=== PATIENT | female | born 1930 | race Caucasian/White ===

== ENCOUNTER → 2016-11-06 | Outpatient (CLI) | payer MEDICARE, BC ==
--- NOTE | 2016-11-06 15:49 | CR ---
EXAMINATION: Right shoulder HISTORY: Pain COMPARISON: None TECHNIQUE: 3 views FINDINGS: There is no acute osseous abnormality, dislocation, or fracture. 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 The glenohumeral joint space is grossly preserved. IMPRESSION: Mild degenerative changes without acute findings.
== END ==
LOC: MW.CHORTHO 07:58
PROVIDERS: ATTEND Physician Assistant
DX: M25.511 Pain in right shoulder (principal)
CPT/HCPCS: 20610; 73030; G0463; J1040

== ENCOUNTER → 2017-01-11 | Outpatient (CLI) | payer MEDICARE, BC | LOC: MW.CHFP 08:00 | PROVIDERS: ATTEND Emergency Medicine | DX: N39.44 Nocturnal enuresis (principal); G31.84 Mild cognitive impairment of uncertain or unknown etiology; R42 Dizziness and giddiness | CPT/HCPCS: G0463 ==

== ENCOUNTER → 2017-02-05 | Outpatient (CLI) | payer MEDICARE, BC | LOC: MW.CHFP 08:00 | PROVIDERS: ATTEND Emergency Medicine | DX: I10 Essential (primary) hypertension (principal); R42 Dizziness and giddiness; R29.6 Repeated falls | CPT/HCPCS: G0463 ==

== ENCOUNTER 2018-06-05 11:40 | Emergency (ER) | payer MEDICARE, BC ==
[2018-06-05 11:57] VITALS: BP 180/79
[2018-06-05] MEDS ORDERED: Sodium Chloride 0.9% 2.5 ML Syringe FLUSH PRN (11:57)
[2018-06-05] MEDS ORDERED: Sodium Chloride 0.9% 10 ML Syringe FLUSH PRN (11:57)
--- NOTE | 2018-06-05 11:57 | EDM.PDOC ---
ED HPI GENERAL MEDICAL PROBLEM - General Stated Complaint: POSSIBLE STROKE Time Seen by Provider: 06/05/18 11:40 Source of Information: Reports: Patient, EMS, Family History Limitations: Reports: No Limitations - History of Present Illness INITIAL COMMENTS - FREE TEXT/NARRATIVE: HISTORY AND PHYSICAL: Stroke Code was called upon arrival by EMS, Dr Fox was involved with this case. History of present illness: Patient is an 87-year-old female who presents to the emergency room with EMS as a stroke code. Patient receives in-home care by 2 caregivers and family members that intermittently staying with her as well. Last night the patient did get up at 1:30 AM to use the bathroom and at that time was known well. The caregiver states that she was restless throughout the evening and mumbling in her sleep, which is unlike her. The caregiver came into the patient's room at approximately 7 AM and asked her if she needed to use the restroom which she replied "no". At this time the caregiver did not physically assess the patient. She let the patient sleep-in, as she had been restless throughout the evening. The nurse came in at 8:30 in the morning to provide pericare, as she is frequently incontinent of urine. The caregiver noted that she was generally weaker than normal. It wasn't until 10:00am that the caregiver realized that she had extreme weakness and proceeded to call her litharge supervisor. They did do routine assessment and had an elevated blood pressure of 200/105. EMS was called to the home. A stroke code was called prior to the patient's arrival. Upon arrival the patient is alert but is neglecting her left side. Blood sugar is 120. Patient has a past medical history high blood pressure, dementia, cognitive decline and hydrocephalus. Primary care provider DR GUTIERREZ Review of systems: As per history of present illness and below otherwise all systems reviewed and negative. Past medical history: As per history of present illness and as reviewed below otherwise noncontributory. Surgical history: As per history of present illness and as reviewed below otherwise noncontributory. Social history: No reported history of drug or alcohol abuse. Family history: As per history of present illness and as reviewed below otherwise noncontributory. Physical exam: General: Well-developed and well-nourished 87-year-old female. Alert and Orientated x 3. Neglecting left side of body. HEENT: Atraumatic, normocephalic, pupils equal and reactive bilaterally, negative for conjunctival pallor or scleral icterus, gazing to right side, mucous membranes moist, throat clear, neck supple, nontender, trachea midline. No drooling or trismus noted. No meningeal signs Lungs: Clear to auscultation, slightly diminished, breath sounds equal bilaterally, chest nontender. Heart: S1S2, regular rate and rhythm without overt murmur Abdomen: Soft, nondistended, nontender. Negative for masses or hepatosplenomegaly. Negative for costovertebral tenderness. Pelvis: Stable nontender. Genitourinary: Deferred. Rectal: Deferred. Skin: Intact, warm, dry. No lesions or rashes noted. Extremities: Patient is neglecting the left side of her body and no active range of motion., negative for cords or calf pain. Neurovascular unremarkable. Neuro: Awake, alert, oriented. Left sided neglect, states she has sensation with touch of the face (but not from shoulder downward of left side). Left sided facial droop, no movement of left upper or lower extremity. Notes: Upon arrival NIH: 16. Complete neglect of the left side, no movement. Patient to CT with nursing staff to monitor 1145: Dr Paz, [facility], was consulted on this case. Family currently has patient at a Code I, and want her to be transferred to [facility] for Neurology care. Upon patient return, she is now able to move the left leg, but unable to lift it up off the bed. Still facial droop noted to left side, but does close both eyes with threatened incoming object. Unable to move left upper extremity. [facility] was called for transfer. 1215: Dr Fragoso, consulting radiology report that there is no acute hemorrhage/ bleeding noted. Does have enlarged ventricles, out of proportion - the patient norm due to her history of hydrocephalus. 1230: Family is discussing her code-status an dif they now want her to be transferred. Dr Fox has been in with family to have a in length discussion about patient care/transfer. 1250: No change in patient status. Family waiting for a family member to arrive before deciding about transfer. Dr Gonzalez in at bedside talking with patient and family. Family would like patient at CODE III 1320: No change in patient status. VSS. Family has agreed to transfer this patient via [employer] flight. Diagnostics: CBC, CMP, UA, Bedside glucose, PT/INR, PTT, Head CT (Stat), NIH assessment Therapeutics: Saline Lock Impression: Acute Stroke (non-hemorrhagic) Plan: Transfer to [facility] Definitive disposition and diagnosis as appropriate pending reevaluation and review of above. Onset: Unknown/Unsure - Related Data Allergies Allergy/AdvReac Type Severity Reaction Status Date / Time codeine Allergy Itching Verified 06/05/18 11:56 nitrofurantoin Allergy Itching Verified 06/05/18 11:56 [From Macrobid] nitrofurantoin Allergy Itching Verified 06/05/18 11:56 macrocrystalline [From Macrobid] Penicillins Allergy Itching Verified 06/05/18 11:56 Thiazides Allergy unknown Verified 06/05/18 11:56 antibiotics Allergy Itching Uncoded 06/05/18 11:56 Home Meds: Home Meds Levothyroxine Sodium [Synthroid] 25 mcg PO DAILY 01/30/15 [History] Lisinopril 20 mg PO DAILY 01/30/15 [History] Sertraline [Zoloft] 100 mg PO DAILY 01/30/15 [History] Calcium Carbonate [Calcium] 1 tab PO DAILY 07/09/15 [History] L.acidoph,Paracasei, B.lactis [Probiotic] 2 tab PO DAILY 07/09/15 [History] amLODIPine [Norvasc] 5 mg PO BEDTIME 07/09/15 [History] Acetaminophen/oxyCODONE [Percocet 325-5 MG] 1 - 2 tab PO Q6H PRN #20 tablet [Rx] Past Medical History Other HEENT History: melissa hearing aides, top denture, wears glasses Other Cardiovascular History: related to kidney stenosis (left) Other Gastrointestinal History: history of C. diff 3 years ago Other Genitourinary History: Renal stenosis (left) Other Hematologic History: hx thrombocytopenia - Past Surgical History Other Cardiovascular Surgeries/Procedures: right,. Tracheal mucoseal Other Respiratory Surgeries/Procedures: tracheostomy in 2010 (temporary) Other Musculoskeletal Surgeries/Procedures:: diskectomy ED ROS GENERAL - Review of Systems Review Of Systems: ROS reveals no pertinent complaints other than HPI. ED EXAM, GENERAL - Physical Exam Exam: See Below (See dictation) Course - Vital Signs Last Recorded V/S: Last Vital Signs Temp 97.1 F 06/05/18 11:40 Pulse 73 06/05/18 11:40 Resp 16 06/05/18 11:40 BP 180/79 H 06/05/18 11:40 Pulse Ox 95 06/05/18 11:57 - Orders/Labs/Meds Orders: Active Orders 24 hr Category Date Time Status Assess Neurological Status [RC] ASDIRECTED Care 06/05/18 11:57 Active Blood Glucose Check, Bedside [] STAT Care 06/05/18 11:57 Active Cardiac Monitoring [RC] . DIRECTED Care 06/05/18 11:57 Active EKG Documentation Completion [] STAT Care 06/05/18 11:57 Active Initiate Acute Stroke Protocol [] STAT Care 06/05/18 11:57 Active NIH Stroke Scale [] ASDIRECTED Care 06/05/18 11:57 Active Oxygen Therapy [] ASDIRECTED Care 06/05/18 11:57 Active Head wo Cont [CT] Stat Exams 06/05/18 11:57 Taken Sodium Chloride 0.9% [Saline Flush] Med 06/05/18 11:57 Active 10 ml FLUSH ASDIRECTED PRN Sodium Chloride 0.9% [Saline Flush] Med 06/05/18 11:57 Active 2.5 ml FLUSH ASDIRECTED PRN Peripheral IV Insertion Adult [OM.PC] Stat Oth 06/05/18 11:57 Ordered Peripheral IV Insertion Adult [OM.PC] Stat Oth 06/05/18 11:57 Ordered Resuscitation Status Stat Resus Stat 06/05/18 11:57 Ordered Medication Orders Sodium Chloride (Saline Flush) 10 ml FLUSH ASDIRECTED PRN PRN Reason: Keep Vein Open Sodium Chloride (Saline Flush) 2.5 ml FLUSH ASDIRECTED PRN PRN Reason: Keep Vein Open Labs: Laboratory Tests 06/05/18 06/05/18 06/05/18 Range/Units 12:00 12:00 12:00 WBC 6.16 (4.0-11.0) K/uL RBC 4.56 (4.30-5.90) M/uL Hgb 13.6 (12.0-16.0) g/dL Hct 40.2 (36.0-46.0) % MCV 88.2 (80.0-98.0) fL MCH 29.8 (27.0-32.0) pg MCHC 33.8 (31.0-37.0) g/dL RDW Std Deviation 43.1 (28.0-62.0) fl RDW Coeff of Megan 13 (11.0-15.0) % Plt Count 101 L (150-400) K/uL MPV 11.00 (7.40-12.00) fL Neut % (Auto) 79.2 (48.0-80.0) % Lymph % (Auto) 15.1 L (16.0-40.0) % [facility] % (Auto) 4.5 (0.0-15.0) % Eos % (Auto) 1.0 (0.0-7.0) % Baso % (Auto) 0.2 (0.0-1.5) % Neut # (Auto) 4.9 (1.4-5.7) K/uL Lymph # (Auto) 0.9 (0.6-2.4) K/uL [facility] # (Auto) 0.3 (0.0-0.8) K/uL Eos # (Auto) 0.1 (0.0-0.7) K/uL Baso # (Auto) 0.0 (0.0-0.1) K/uL Nucleated RBC % 0.0 /100WBC Nucleated RBCs # 0 K/uL INR 1.11 APTT 29.7 (18.6-31.3) SEC Sodium 141 (136-145) mmol/L Potassium 3.7 (3.5-5.1) mmol/L Chloride 105 (98-107) mmol/L Carbon Dioxide 27.0 (21.0-32.0) mmol/L BUN 20 H (7.0-18.0) mg/dL Creatinine 1.0 (0.6-1.0) mg/dL Est Cr Clr Drug Dosing TNP Estimated GFR (MDRD) 52.6 ml/min Glucose 141 H (74-106) mg/dL Calcium 9.6 (8.5-10.1) mg/dL Total Bilirubin 0.5 (0.2-1.0) mg/dL AST 20 (15-37) IU/L ALT 17 (14-63) IU/L Alkaline Phosphatase 50 (46-116) U/L Troponin I < 0.050 (0.000-0.056) ng/mL Total Protein 7.1 (6.4-8.2) g/dL Albumin 4.0 (3.4-5.0) g/dL Globulin 3.1 (2.0-3.5) g/dL Albumin/Globulin Ratio 1.3 (1.3-2.8) Meds: Medications Generic Name Dose Route Start Last Admin Trade Name Freq PRN Reason Stop Dose Admin Sodium Chloride 10 ml 06/05/18 11:57 Saline Flush FLUSH ASDIRECTED PRN Keep Vein Open Sodium Chloride 2.5 ml 06/05/18 11:57 Saline Flush FLUSH ASDIRECTED PRN Keep Vein Open Departure - Departure Time of Disposition: 13:26 Disposition: DC/Tfer to Acute Hospital 02 Clinical Impression: Acute ischemic stroke - Discharge Information Referrals: PCP,None [Primary Care Provider] -
[2018-06-05 12:47] LABS: CHLORIDE,CL 105 mmol/L (98-107); SODIUM,NA 141 mmol/L (136-145)
--- NOTE | 2018-06-06 15:48 | CT ---
EXAM DATE: 06/05/18 PATIENT'S AGE: 87 Patient: JADIEL STROKECODE Facility: [facility], [place], [place] Site . Site : 09/13/1928 Study: CT Head -06/05/2018 11:51:11 AM Ordering Physician: Doctor Mendoza Final Report: INDICATION: Stroke code. TECHNIQUE: Multiple axial images were obtained through the brain without contrast. Sagittal and coronal re-formatted images were obtained. COMPARISON: None. FINDINGS: There is atrophy. The ventricles appear dilated out of proportion to the sulci. There is decreased attenuation in the periventricular white matter consistent with small vessel ischemic disease. There is no mass effect or midline shift. There is no intracranial hemorrhage. There is no fracture identified on bone windows. IMPRESSION: 1. The ventricles appear dilated out of proportion to the sulci. In the correct clinical scenario this could be secondary to a normal-pressure hydrocephalus. 2. Findings consistent with small vessel ischemic disease. 3. No acute intracranial hemorrhage. Report was discussed with Dr. Larsen on 06/04/2018 at that 1214 hours. Dictated by Conrad Lira MD @ 06/05/2018 12:16:45 PM Please note that all CT scans at this facility use dose modulation, iterative reconstruction, and/or weight-based dosing when appropriate to reduce radiation dose to as low as reasonably achievable. Dictated by: Conrad Lira MD @ 06/05/2018 12:16:53 (Electronic Signature) Report Signed by Proxy. G[facility] CENTERCarlo
== END 2018-06-05 13:32 ==
LOC: MW.ED 11:40
DX: I63.9 Cerebral infarction, unspecified (principal); R29.810 Facial weakness; F03.90 Unspecified dementia, unspecified severity, without behavioral disturbance, psychotic disturbance, mood disturbance, and anxiety; Z88.5 Allergy status to narcotic agent; Z88.0 Allergy status to penicillin; Z88.1 Allergy status to other antibiotic agents; Z88.8 Allergy status to other drugs, medicaments and biological substances; Z79.899 Other long term (current) drug therapy
CPT/HCPCS: 36415; 70450; 70450-26; 80053; 84484; 85025; 85610; 85730; 93005; 99284; 99285-25

== ENCOUNTER 2019-10-10 18:57 | Inpatient (IN) | payer MEDICARE, BC ==
[2019-10-10] MEDS ORDERED: Sodium Chloride 0.9% 2.5 ML Syringe FLUSH PRN (19:19)
[2019-10-10] MEDS ORDERED: Sodium Chloride 0.9% 10 ML Syringe FLUSH PRN (19:19)
[2019-10-10] MEDS ORDERED: Acetaminophen 650 MG Supp RECTAL ONE (19:20)
--- NOTE | 2019-10-10 19:31 | EDM.PDOC ---
ED HPI GENERAL MEDICAL PROBLEM - General Chief Complaint: General Stated Complaint: EMS Time Seen by Provider: 10/10/19 19:09 - History of Present Illness INITIAL COMMENTS - FREE TEXT/NARRATIVE: HISTORY AND PHYSICAL: History of present illness: The patient is an 89-year-old female who lives at home with her daughter and has a history of hypertension hypothyroidism a small pleural effusion with some mild CHF who had a UTI a month ago but his antibiotics were stopped because the culture did not yield significant results and who presents via EMS after the daughter noted that she was more confused and her O2 sats were low in the 80s this evening. 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 She was afebrile earlier at 99 per the daughter. She had no complaints of chest pain shortness of breath had no cough abdominal pain vomiting diarrhea or any systemic issues. The daughter noted that she seemed to be much more confused and checked her O2 sat and it was in the 80s and she called EMS. Here her temperature is 103.5. The patient denies any pain currently and is very slow to answer but is alert and interactive. The daughter says she has been eating and drinking normally. The daughter told nursing that she has not had a facial droop on the right with her prior stroke which left her with a left hemiparesis. Review of systems: As per history of present illness and below otherwise all systems reviewed and negative. Past medical history: As per history of present illness and as reviewed below otherwise noncontributory. Surgical history: As per history of present illness and as reviewed below otherwise noncontributory. Social history: No reported history of drug or alcohol abuse. Family history: As per history of present illness and as reviewed below otherwise noncontributory. Physical exam: General: Well-developed well-nourished elderly female who speaks softly and clearly but does not have a slurred voice. She has a visible slight right facial droop appreciated. Vital signs are noted by me HEENT: Atraumatic, normocephalic, pupils reactive, negative for conjunctival pallor or scleral icterus, mucous membranes moist, throat clear, neck supple, nontender, trachea midline. Lungs: Diminished breath sounds in the bases and some occasional coarse breath sounds but no work of breathing wheezing or stridor breath sounds equal bilaterally, chest nontender. Heart: S1S2, regular and rhythm and a systolic ejection murmur is appreciated at the left sternal border Abdomen: Soft, nondistended, nontender. Bowel sounds are hypoactive and there is some tympany on percussion but no tenderness in the abdomen is very globular. Negative for masses or hepatosplenomegaly. Negative for costovertebral tenderness. Pelvis: Stable nontender. Genitourinary: Deferred. Rectal: Deferred. Extremities: Atraumatic, negative for cords or calf pain. Neurovascular unremarkable. Neuro: Awake, alert, softly and quietly and she is oriented to person and place.. SHe has the right facial droop appreciated and there is some contracture seen of the left hand and she does not move her left arm or leg on my examination in the right side is a 3/5 in the upper extremity and a 3/5 in the lower extremity with very slow effort and sensory unremarkable throughout. Exam nonfocal. Diagnostics: EKG CBC CMP TSH UA urine culture blood cultures lactic acid influenza swab chest x-ray CT scan of the head Therapeutics: IV O2 monitor Tylenol rectally IV fluids Findings were discussed with the daughter at bedside and we will plan for admission. I will discuss this case with the hospitalist [id number]: Dr Draper hospitalist was contacted and agrees with care plan and accepts the patient for inpatient admission. Impression: Fever with confusion and hypoventilation, urosepsis, dehydration; history of prior CVA with left hemiparesis Definitive disposition and diagnosis as appropriate pending reevaluation and review of above. - Related Data Allergies Allergy/AdvReac Type Severity Reaction Status Date / Time codeine Allergy Itching Verified 10/10/19 19:02 nitrofurantoin Allergy Itching Verified 10/10/19 19:02 [From Macrobid] nitrofurantoin Allergy Itching Verified 10/10/19 19:02 macrocrystalline [From Macrobid] Penicillins Allergy Itching Verified 10/10/19 19:02 Sulfa (Sulfonamide Allergy Itching Verified 10/10/19 19:02 Antibiotics) Thiazides Allergy unknown Verified 10/10/19 19:02 Home Meds: Home Meds Baclofen 5 mg PO QID 10/10/19 [History] Escitalopram [Lexapro] 5 mg PO DAILY 10/10/19 [History] Gabapentin [Neurontin] 100 mg PO BEDTIME 10/10/19 [History] Levothyroxine 25 mcg PO DAILY 10/10/19 [History] Lisinopril [Zestril] 20 mg PO BEDTIME 10/10/19 [History] Metoprolol Succinate [Toprol XL] 25 mg PO BEDTIME 10/10/19 [History] Potassium Chloride 10 meq PO DAILY 10/10/19 [History] hydrALAZINE HCl [Hydralazine HCl] 25 mg PO BEDTIME 10/10/19 [History] Past Medical History Other HEENT History: melissa hearing aides, top denture, wears glasses Cardiovascular History: Reports: Hypertension Other Cardiovascular History: related to kidney stenosis (left) Respiratory History: Reports: None Other Gastrointestinal History: history of C. diff 3 years ago Other Genitourinary History: Renal artery stenosis (left) Neurological History: Reports: CVA, Other (See Below) Other Neuro History: Normal pressure hydrocephalus Endocrine/Metabolic History: Reports: Hypothyroidism Other Hematologic History: hx thrombocytopenia - Infectious Disease History Infectious Disease History: Reports: Chicken Pox Other Infectious Disease History: unable to obtain - Past Surgical History Other Cardiovascular Surgeries/Procedures: right,. Tracheal mucoseal Other Respiratory Surgeries/Procedures: tracheostomy in 2010 (temporary) Other Musculoskeletal Surgeries/Procedures:: diskectomy Social & Family History - Family History Family Medical History: Noncontributory - Tobacco Use Smoking Status *Q: Never Smoker - Caffeine Use Caffeine Use: Reports: None - Recreational Drug Use Recreational Drug Use: No - Living Situation & Occupation Living situation: Reports: Extended Care Facility ED ROS GENERAL - Review of Systems Review Of Systems: Comprehensive ROS is negative, except as noted in HPI. ED EXAM, GENERAL - Physical Exam Exam: See Below (See dictation) Course - Vital Signs Last Recorded V/S: Last Vital Signs Temp 39.7 C H 10/10/19 19:29 Pulse 83 10/10/19 20:10 Resp 18 10/10/19 20:10 BP 161/73 H 10/10/19 20:10 Pulse Ox 95 10/10/19 20:10 - Orders/Labs/Meds Orders: Active Orders 24 hr Category Date Time Status Blood Glucose Check, Bedside [RC] ONETIME Care 10/10/19 19:18 Active Cardiac Monitoring [RC] . DIRECTED Care 10/10/19 19:17 Active EKG Documentation Completion [RC] STAT Care 10/10/19 19:17 Active Oxygen Therapy, ED [RC] ASDIRECTED Care 10/10/19 19:17 Active Pulse Oximetry [RC] ASDIRECTED Care 10/10/19 19:17 Active CULTURE BLOOD [BC] Stat Lab 10/10/19 19:45 Received CULTURE BLOOD [BC] Stat Lab 10/10/19 20:09 Received CULTURE URINE [RM] Stat Lab 10/10/19 19:15 Received Sodium Chloride 0.9% [Normal Saline] 1,000 ml Med 10/10/19 19:30 Active IV ASDIRECTED Sodium Chloride 0.9% [Saline Flush] Med 10/10/19 19:19 Active 10 ml FLUSH ASDIRECTED PRN Sodium Chloride 0.9% [Saline Flush] Med 10/10/19 19:19 Active 2.5 ml FLUSH ASDIRECTED PRN Blood Culture x2 Reflex Set [OM.PC] Stat Oth 10/10/19 19:18 Ordered Saline Lock Insert [OM.PC] Stat Oth 10/10/19 19:17 Ordered Medication Orders Sodium Chloride (Normal Saline) 1,000 mls @ 125 mls/hr IV ASDIRECTED ROSY Last Admin: 10/10/19 19:35 Dose: 999 mls/hr Sodium Chloride (Saline Flush) 10 ml FLUSH ASDIRECTED PRN PRN Reason: Keep Vein Open Sodium Chloride (Saline Flush) 2.5 ml FLUSH ASDIRECTED PRN PRN Reason: Keep Vein Open Labs: Laboratory Tests 10/10/19 10/10/19 10/10/19 Range/Units 19:15 19:45 19:45 WBC 6.13 (4.0-11.0) K/uL RBC 3.68 L (4.30-5.90) M/uL Hgb 10.5 L (12.0-16.0) g/dL Hct 32.5 L (36.0-46.0) % MCV 88.3 (80.0-98.0) fL MCH 28.5 (27.0-32.0) pg MCHC 32.3 (31.0-37.0) g/dL RDW Std Deviation 46.6 (28.0-62.0) fl RDW Coeff of Megan 15 (11.0-15.0) % Plt Count 140 L (150-400) K/uL MPV 11.00 (7.40-12.00) fL Neut % (Auto) 93.6 H (48.0-80.0) % Lymph % (Auto) 2.4 L (16.0-40.0) % Morton % (Auto) 3.3 (0.0-15.0) % Eos % (Auto) 0.5 (0.0-7.0) % Baso % (Auto) 0.2 (0.0-1.5) % Neut # (Auto) 5.7 (1.4-5.7) K/uL Lymph # (Auto) 0.2 L (0.6-2.4) K/uL Morton # (Auto) 0.2 (0.0-0.8) K/uL Eos # (Auto) 0.0 (0.0-0.7) K/uL Baso # (Auto) 0.0 (0.0-0.1) K/uL Nucleated RBC % 0.0 /100WBC Nucleated RBCs # 0 K/uL Lactate 2.5 H* (0.20-2.00) mmol/L Sodium (136-145) mmol/L Potassium (3.5-5.1) mmol/L Chloride (98-107) mmol/L Carbon Dioxide (21.0-32.0) mmol/L BUN (7.0-18.0) mg/dL Creatinine (0.6-1.0) mg/dL Est Cr Clr Drug Dosing mL/min Estimated GFR (MDRD) ml/min Glucose (74-106) mg/dL Calcium (8.5-10.1) mg/dL Total Bilirubin (0.2-1.0) mg/dL AST (15-37) IU/L ALT (14-63) IU/L Alkaline Phosphatase (46-116) U/L Total Protein (6.4-8.2) g/dL Albumin (3.4-5.0) g/dL Globulin (2.6-4.0) g/dL Albumin/Globulin Ratio (0.9-1.6) TSH 3rd Generation (0.36-3.74) uIU/mL Urine Color YELLOW Urine Appearance CLOUDY Urine pH 6.0 (5.0-8.0) Ur Specific Josephine 1.020 (1.001-1.035) Urine Protein NEGATIVE (NEGATIVE) mg/dL Urine Glucose (UA) NEGATIVE (NEGATIVE) mg/dL Urine Ketones NEGATIVE (NEGATIVE) mg/dL Urine Occult Blood TRACE-LYSED H (NEGATIVE) Urine Nitrite POSITIVE H (NEGATIVE) Urine Bilirubin NEGATIVE (NEGATIVE) Urine Urobilinogen 0.2 (<2.0) EU/dL Ur Leukocyte Esterase TRACE H (NEGATIVE) Urine RBC 10-15 (0-2/HPF) Urine WBC 4-8 (0-5/HPF) Ur Epithelial Cells RARE (NONE-FEW) Urine Bacteria 3+ H (NEGATIVE) 10/10/19 Range/Units 19:45 WBC (4.0-11.0) K/uL RBC (4.30-5.90) M/uL Hgb (12.0-16.0) g/dL Hct (36.0-46.0) % MCV (80.0-98.0) fL MCH (27.0-32.0) pg MCHC (31.0-37.0) g/dL RDW Std Deviation (28.0-62.0) fl RDW Coeff of Megan (11.0-15.0) % Plt Count (150-400) K/uL MPV (7.40-12.00) fL Neut % (Auto) (48.0-80.0) % Lymph % (Auto) (16.0-40.0) % Morton % (Auto) (0.0-15.0) % Eos % (Auto) (0.0-7.0) % Baso % (Auto) (0.0-1.5) % Neut # (Auto) (1.4-5.7) K/uL Lymph # (Auto) (0.6-2.4) K/uL Morton # (Auto) (0.0-0.8) K/uL Eos # (Auto) (0.0-0.7) K/uL Baso # (Auto) (0.0-0.1) K/uL Nucleated RBC % /100WBC Nucleated RBCs # K/uL Lactate (0.20-2.00) mmol/L Sodium 140 (136-145) mmol/L Potassium 3.1 L (3.5-5.1) mmol/L Chloride 104 (98-107) mmol/L Carbon Dioxide 20.1 L (21.0-32.0) mmol/L BUN 28 H (7.0-18.0) mg/dL Creatinine 1.0 (0.6-1.0) mg/dL Est Cr Clr Drug Dosing 36.40 mL/min Estimated GFR (MDRD) 52.3 ml/min Glucose 110 H (74-106) mg/dL Calcium 8.6 (8.5-10.1) mg/dL Total Bilirubin 0.4 (0.2-1.0) mg/dL AST 29 (15-37) IU/L ALT 20 (14-63) IU/L Alkaline Phosphatase 92 (46-116) U/L Total Protein 6.0 L (6.4-8.2) g/dL Albumin 2.7 L (3.4-5.0) g/dL Globulin 3.3 (2.6-4.0) g/dL Albumin/Globulin Ratio 0.8 L (0.9-1.6) TSH 3rd Generation 2.54 (0.36-3.74) uIU/mL Urine Color Urine Appearance Urine pH (5.0-8.0) Ur Specific Josephine (1.001-1.035) Urine Protein (NEGATIVE) mg/dL Urine Glucose (UA) (NEGATIVE) mg/dL Urine Ketones (NEGATIVE) mg/dL Urine Occult Blood (NEGATIVE) Urine Nitrite (NEGATIVE) Urine Bilirubin (NEGATIVE) Urine Urobilinogen (<2.0) EU/dL Ur Leukocyte Esterase (NEGATIVE) Urine RBC (0-2/HPF) Urine WBC (0-5/HPF) Ur Epithelial Cells (NONE-FEW) Urine Bacteria (NEGATIVE) Meds: Medications Generic Name Dose Route Start Last Admin Trade Name Freq PRN Reason Stop Dose Admin Sodium Chloride 1,000 mls @ 125 mls/hr 10/10/19 19:30 10/10/19 19:35 Normal Saline IV 999 mls/hr ASDIRECTED ROSY Administration Sodium Chloride 10 ml 10/10/19 19:19 Saline Flush FLUSH ASDIRECTED PRN Keep Vein Open Sodium Chloride 2.5 ml 10/10/19 19:19 Saline Flush FLUSH ASDIRECTED PRN Keep Vein Open Discontinued Medications Generic Name Dose Route Start Last Admin Trade Name Raulq PRN Reason Stop Dose Admin Acetaminophen 650 mg 10/10/19 19:20 10/10/19 19:29 Tylenol RECTAL 10/10/19 19:21 650 mg NOW ONE Administration Ceftriaxone Sodium/Dextrose 1 50 mls @ 100 mls/hr 10/10/19 19:51 10/10/19 20: 16 gm/ Premix IV 10/10/19 20:20 100 mls/hr ONETIME ONE Administration Labetalol HCl Confirm 10/10/19 20:23 Normodyne Administered 10/10/19 20:24 Dose 100 mg .ROUTE .STK-MED ONE Departure - Departure Time of Disposition: 20:41 Disposition: Admitted As Inpatient 67 Condition: Fair Clinical Impression: UTI, Urinary tract infectious disease, Confusion Fever Qualifiers: Fever type: due to other condition Qualified Code(s): R50.81 - Fever presenting with conditions classified elsewhere - Discharge Information Referrals: Aman Adrian MD [Primary Care Provider] - Forms: ED Department Discharge Sepsis Event Note - Evaluation Sepsis Screening Result: No Definite Risk - Focused Exam Vital Signs: Vital Signs Temp Temp Pulse Resp BP Pulse Ox 10/10/19 20:10 83 18 161/73 H 95 10/10/19 19:29 39.7 C H 10/10/19 19:12 39.7 C H 10/10/19 19:02 100 17 161/71 H 90 L Date Exam was Performed: 10/10/19 Time Exam was Performed: 20:40 - My Orders Last 24 Hours: My Active Orders 10/10/19 19:15 CULTURE URINE [RM] Stat 10/10/19 19:17 Cardiac Monitoring [RC] . DIRECTED EKG Documentation Completion [RC] STAT Oxygen Therapy, ED [RC] ASDIRECTED Pulse Oximetry [RC] ASDIRECTED Saline Lock Insert [OM.PC] Stat 10/10/19 19:18 Blood Glucose Check, Bedside [RC] ONETIME Blood Culture x2 Reflex Set [OM.PC] Stat 10/10/19 19:19 Sodium Chloride 0.9% [Saline Flush] 10 ml FLUSH ASDIRECTED PRN Sodium Chloride 0.9% [Saline Flush] 2.5 ml FLUSH ASDIRECTED PRN 10/10/19 19:30 Sodium Chloride 0.9% [Normal Saline] 1,000 ml IV ASDIRECTED 10/10/19 19:45 CULTURE BLOOD [BC] Stat 10/10/19 20:09 CULTURE BLOOD [BC] Stat - Assessment/Plan Last 24 Hours: My Active Orders 10/10/19 19:15 CULTURE URINE [RM] Stat 10/10/19 19:17 Cardiac Monitoring [RC] . DIRECTED EKG Documentation Completion [RC] STAT Oxygen Therapy, ED [RC] ASDIRECTED Pulse Oximetry [RC] ASDIRECTED Saline Lock Insert [OM.PC] Stat 10/10/19 19:18 Blood Glucose Check, Bedside [RC] ONETIME Blood Culture x2 Reflex Set [OM.PC] Stat 10/10/19 19:19 Sodium Chloride 0.9% [Saline Flush] 10 ml FLUSH ASDIRECTED PRN Sodium Chloride 0.9% [Saline Flush] 2.5 ml FLUSH ASDIRECTED PRN 10/10/19 19:30 Sodium Chloride 0.9% [Normal Saline] 1,000 ml IV ASDIRECTED 10/10/19 19:45 CULTURE BLOOD [BC] Stat 10/10/19 20:09 CULTURE BLOOD [BC] Stat
[2019-10-10] MEDS: Sodium Chloride 0.9% 1,000 ML IV SCH ×2 (19:35→23:04)
[2019-10-10] MEDS ORDERED: cefTRIAXone 1 GM in Premix Bag 1 BAG IV ONE (19:51)
[2019-10-10] MEDS ORDERED: Labetalol 100 MG/20 ML MDV ONE (20:23)
--- NOTE | 2019-10-10 20:23 | CR ---
Chest: AP view of the chest was obtained. Comparison: Prior chest x-ray of 06/14/19. Moderately large right-sided pleural effusion is noted. Right basilar atelectasis is seen. Findings appear fairly stable from previous exam. Heart is mildly enlarged. Left lung and right upper lung are clear. Bony structures are osteopenic. Impression: 1. Right-sided pleural effusion and right basilar atelectasis. 2. Cardiomegaly. 3. No significant change is appreciated from previous chest x-ray. Diagnostic code #2 This report was dictated in [place] Standard Time
[2019-10-10 20:24] LABS: CARBON DIOXIDE,CO2 20.1 mmol/L (21.0-32.0); POTASSIUM,K 3.1 mmol/L (3.5-5.1)
--- NOTE | 2019-10-10 20:29 | CT ---
Head CT Technique: Multiple axial sections through the brain were obtained. Intravenous contrast was not utilized. Comparison: Prior head CT study of 09/07/18. Findings: Ventricles are rather markedly dilated. This is stable from previous exam. Several old lacunar infarcts are noted within the right basal ganglia. Diminished density is noted within the periventricular white matter compatible with small vessel ischemic demyelination change. No evidence of intracranial hemorrhage. No midline shift or mass-effect is appreciated. Bone window settings shows no acute calvarial abnormality. Moderate mucosal thickening is seen within the right maxillary sinus. Mild mucosal thickening is seen within the right ethmoid sinus. Mastoid sinuses appear clear. Impression: 1. Enlarged ventricular system in relation of the sulci over the convexities. This appears as a stable finding from previous exam. Findings most likely represent benign ventriculomegaly. 2. Other senescent change as described above. 3. Sinus findings most likely chronic. 4. No acute intracranial abnormality is appreciated. Diagnostic code #2 This report was dictated in [place] Standard Time
--- NOTE | 2019-10-10 23:48 | PCM.HP.2 ---
H&P History of Present Illness - General Date of Service: 10/10/19 Admit Problem/Dx: Admission Diagnosis/Problem Admission Diagnosis/Problem Urosepsis - History of Present Illness Initial Comments - Free Text/Narative: The patient is an 89-year-old female who lives at home with her daughter and has a history of hypertension, CVA, hypothyroidism ,pleural effusion, chf presents via EMS after the daughter noted that she was more confused and her O2 sats were low in the 80s this evening.Patient had a UTI a month ago but her antibiotics (macrolide) were stopped around Sarah because the culture showed mixed timur. The daughter and the patient say that she has significant left sided weakness from previous stroke in 2018 and uses wheelchair to get around. She had no complaints of chest pain shortness of breath had no cough abdominal pain vomiting diarrhea or any systemic issues. The daughter noted that she seemed to be much more confused and checked her O2 sat and it was in the 80s and she called EMS. In ER her temperature is 103.5. The daughter says she has been eating and drinking normally. Daughter also noted new facial drop on right side. In ER CT head was negative for acute stroke. CXR showed moderate to large right sided pleural effusion. Patient was found to have normal WBC but high Neutrophils, UA showed UTI. Lactic acid was mildly elevated. Patient is being admitted for management of sepsis secondary to UTI, Received Ceftriaxone in ER and IV fluids. Onset of Symptoms: Reports: Today Duration of Symptoms: Reports: Hour(s): Severity: Moderate Improves with: Reports: None Worsens with: Reports: None - Related Data Allergies/Adverse Reactions: Allergies Allergy/AdvReac Type Severity Reaction Status Date / Time codeine Allergy Itching Verified 10/11/19 00:37 nitrofurantoin Allergy Itching Verified 10/11/19 00:37 [From Macrobid] nitrofurantoin Allergy Itching Verified 10/11/19 00:37 macrocrystalline [From Macrobid] Penicillins Allergy Itching Verified 10/11/19 00:37 Sulfa (Sulfonamide Allergy Itching Verified 10/11/19 00:37 Antibiotics) Thiazides Allergy unknown Verified 10/11/19 00:37 Home Medications: Home Meds Baclofen 5 mg PO DAILY 10/10/19 [History] Escitalopram [Lexapro] 5 mg PO DAILY 10/10/19 [History] Gabapentin [Neurontin] 100 mg PO BEDTIME 10/10/19 [History] Levothyroxine 25 mcg PO DAILY 10/10/19 [History] Lisinopril [Zestril] 20 mg PO BID 10/10/19 [History] Metoprolol Succinate [Toprol XL] 25 mg PO BID 10/10/19 [History] Potassium Chloride 10 meq PO DAILY 10/10/19 [History] hydrALAZINE HCl [Hydralazine HCl] 25 mg PO Q6H 10/10/19 [History] Aspirin 81 mg PO BEDTIME 30 Days #30 tab.chew 10/13/19 [Rx] Past Medical History Other HEENT History: melissa hearing aides, top denture, wears glasses Cardiovascular History: Reports: Hypertension Other Cardiovascular History: related to kidney stenosis (left) Respiratory History: Reports: None Other Gastrointestinal History: history of C. diff 3 years ago Other Genitourinary History: Renal artery stenosis (left) Neurological History: Reports: CVA, Other (See Below) Other Neuro History: Normal pressure hydrocephalus Endocrine/Metabolic History: Reports: Hypothyroidism Other Hematologic History: hx thrombocytopenia - Infectious Disease History Infectious Disease History: Reports: Chicken Pox Other Infectious Disease History: unable to obtain - Past Surgical History Other Cardiovascular Surgeries/Procedures: right,. Tracheal mucoseal Other Respiratory Surgeries/Procedures: tracheostomy in 2010 (temporary) Other Musculoskeletal Surgeries/Procedures:: diskectomy Social & Family History - Family History Family Medical History: Noncontributory - Tobacco Use Smoking Status *Q: Never Smoker - Caffeine Use Caffeine Use: Reports: None - Recreational Drug Use Recreational Drug Use: No - Living Situation & Occupation Living situation: Reports: Extended Care Facility H&P Review of Systems - Review of Systems: Review Of Systems: See Below General: Reports: Weakness. Denies: Fever, Chills, Decreased Appetite, Weight Loss HEENT: Denies: Dysphasia, Ear Pain, Headaches Pulmonary: Reports: Shortness of Breath, Cough. Denies: Wheezing, Pleuritic Chest Pain, Sputum Cardiovascular: Reports: Dyspnea on Exertion. Denies: Chest Pain, Palpitations Gastrointestinal: Reports: Stool Incontinence. Denies: Abdominal Pain, Anorexia , Black Stool, Bloody Stool, Nausea Genitourinary: Reports: Frequency. Denies: Dysuria, Burning Musculoskeletal: Denies: Neck Pain, Shoulder Pain Skin: Denies: Cyanosis, Jaundice, Mottled Psychiatric: Reports: Confusion. Denies: Hallucinations, Suicidal Ideation Exam - Exam Exam: See Below - Vital Signs Vital Signs: Last Vital Signs Temp 39.7 C H 10/10/19 19:29 Pulse 83 10/10/19 20:10 Resp 18 10/10/19 20:10 BP 161/73 H 10/10/19 20:10 Pulse Ox 95 10/10/19 20:10 Weight: 63.503 kg - Exam Quality Assessment: Supplemental Oxygen General: Cooperative, Mild Distress. No: Oriented HEENT: No: Mucosa Moist & [place] Neck: No: Supple Lungs: Decreased Breath Sounds, Crackles Cardiovascular: Regular Rate, Regular Rhythm GI/Abdominal Exam: Normal Bowel Sounds, Soft, Non-Tender Extremities: Normal Inspection Peripheral Pulses: 3+: Dorsalis Pedis (L), Dorsalis Pedis (R) Skin: Dry - Patient Data Lab Results Last 24 hrs: Laboratory Results - last 24 hr 10/10/19 10/10/19 10/10/19 Range/Units 19:15 19:45 19:45 WBC 6.13 (4.0-11.0) K/uL RBC 3.68 L (4.30-5.90) M/uL Hgb 10.5 L (12.0-16.0) g/dL Hct 32.5 L (36.0-46.0) % MCV 88.3 (80.0-98.0) fL MCH 28.5 (27.0-32.0) pg MCHC 32.3 (31.0-37.0) g/dL RDW Std Deviation 46.6 (28.0-62.0) fl RDW Coeff of Megan 15 (11.0-15.0) % Plt Count 140 L (150-400) K/uL MPV 11.00 (7.40-12.00) fL Neut % (Auto) 93.6 H (48.0-80.0) % Lymph % (Auto) 2.4 L (16.0-40.0) % [place] % (Auto) 3.3 (0.0-15.0) % Eos % (Auto) 0.5 (0.0-7.0) % Baso % (Auto) 0.2 (0.0-1.5) % Neut # (Auto) 5.7 (1.4-5.7) K/uL Lymph # (Auto) 0.2 L (0.6-2.4) K/uL [place] # (Auto) 0.2 (0.0-0.8) K/uL Eos # (Auto) 0.0 (0.0-0.7) K/uL Baso # (Auto) 0.0 (0.0-0.1) K/uL Nucleated RBC % 0.0 /100WBC Nucleated RBCs # 0 K/uL Lactate 2.5 H* (0.20-2.00) mmol/L Sodium (136-145) mmol/L Potassium (3.5-5.1) mmol/L Chloride (98-107) mmol/L Carbon Dioxide (21.0-32.0) mmol/L BUN (7.0-18.0) mg/dL Creatinine (0.6-1.0) mg/dL Est Cr Clr Drug Dosing mL/min Estimated GFR (MDRD) ml/min Glucose (74-106) mg/dL Calcium (8.5-10.1) mg/dL Total Bilirubin (0.2-1.0) mg/dL AST (15-37) IU/L ALT (14-63) IU/L Alkaline Phosphatase (46-116) U/L Total Protein (6.4-8.2) g/dL Albumin (3.4-5.0) g/dL Globulin (2.6-4.0) g/dL Albumin/Globulin Ratio (0.9-1.6) TSH 3rd Generation (0.36-3.74) uIU/mL Urine Color YELLOW Urine Appearance CLOUDY Urine pH 6.0 (5.0-8.0) Ur Specific [place] 1.020 (1.001-1.035) Urine Protein NEGATIVE (NEGATIVE) mg/dL Urine Glucose (UA) NEGATIVE (NEGATIVE) mg/dL Urine Ketones NEGATIVE (NEGATIVE) mg/dL Urine Occult Blood TRACE-LYSED H (NEGATIVE) Urine Nitrite POSITIVE H (NEGATIVE) Urine Bilirubin NEGATIVE (NEGATIVE) Urine Urobilinogen 0.2 (<2.0) EU/dL Ur Leukocyte Esterase TRACE H (NEGATIVE) Urine RBC 10-15 (0-2/HPF) Urine WBC 4-8 (0-5/HPF) Ur Epithelial Cells RARE (NONE-FEW) Urine Bacteria 3+ H (NEGATIVE) 10/10/19 Range/Units 19:45 WBC (4.0-11.0) K/uL RBC (4.30-5.90) M/uL Hgb (12.0-16.0) g/dL Hct (36.0-46.0) % MCV (80.0-98.0) fL MCH (27.0-32.0) pg MCHC (31.0-37.0) g/dL RDW Std Deviation (28.0-62.0) fl RDW Coeff of Megan (11.0-15.0) % Plt Count (150-400) K/uL MPV (7.40-12.00) fL Neut % (Auto) (48.0-80.0) % Lymph % (Auto) (16.0-40.0) % [place] % (Auto) (0.0-15.0) % Eos % (Auto) (0.0-7.0) % Baso % (Auto) (0.0-1.5) % Neut # (Auto) (1.4-5.7) K/uL Lymph # (Auto) (0.6-2.4) K/uL [place] # (Auto) (0.0-0.8) K/uL Eos # (Auto) (0.0-0.7) K/uL Baso # (Auto) (0.0-0.1) K/uL Nucleated RBC % /100WBC Nucleated RBCs # K/uL Lactate (0.20-2.00) mmol/L Sodium 140 (136-145) mmol/L Potassium 3.1 L (3.5-5.1) mmol/L Chloride 104 (98-107) mmol/L Carbon Dioxide 20.1 L (21.0-32.0) mmol/L BUN 28 H (7.0-18.0) mg/dL Creatinine 1.0 (0.6-1.0) mg/dL Est Cr Clr Drug Dosing 36.40 mL/min Estimated GFR (MDRD) 52.3 ml/min Glucose 110 H (74-106) mg/dL Calcium 8.6 (8.5-10.1) mg/dL Total Bilirubin 0.4 (0.2-1.0) mg/dL AST 29 (15-37) IU/L ALT 20 (14-63) IU/L Alkaline Phosphatase 92 (46-116) U/L Total Protein 6.0 L (6.4-8.2) g/dL Albumin 2.7 L (3.4-5.0) g/dL Globulin 3.3 (2.6-4.0) g/dL Albumin/Globulin Ratio 0.8 L (0.9-1.6) TSH 3rd Generation 2.54 (0.36-3.74) uIU/mL Urine Color Urine Appearance Urine pH (5.0-8.0) Ur Specific [place] (1.001-1.035) Urine Protein (NEGATIVE) mg/dL Urine Glucose (UA) (NEGATIVE) mg/dL Urine Ketones (NEGATIVE) mg/dL Urine Occult Blood (NEGATIVE) Urine Nitrite (NEGATIVE) Urine Bilirubin (NEGATIVE) Urine Urobilinogen (<2.0) EU/dL Ur Leukocyte Esterase (NEGATIVE) Urine RBC (0-2/HPF) Urine WBC (0-5/HPF) Ur Epithelial Cells (NONE-FEW) Urine Bacteria (NEGATIVE) Result Diagrams: 10/14/19 06:23 10/14/19 06:23 Candido Results Last 24 hrs: Microbiology 10/10/19 19:30 Influenza Type A Antigen Screen - Final Nasopharyngeal Swab NEGATIVE INFLUENZA A VIRUS AG REFERENCE RANGE: NEGATIVE Influenza Type B Antigen Screen - Final NEGATIVE INFLUENZA B VIRUS AG REFERENCE RANGE: NEGATIVE Sepsis Event Note - Evaluation Sepsis Screening Result: No Definite Risk - Focused Exam Vital Signs: Vital Signs Temp Temp Pulse Resp BP Pulse Ox 10/10/19 20:10 83 18 161/73 H 95 10/10/19 19:29 39.7 C H 10/10/19 19:12 39.7 C H 10/10/19 19:02 100 17 161/71 H 90 L Date Exam was Performed: 10/22/19 Time Exam was Performed: 16:27 - Problem List (1) UTI, Urinary tract infectious disease SNOMED Code(s): 16637544 ICD Code: N39.0 - URINARY TRACT INFECTION, SITE NOT SPECIFIED Status: Acute (2) CVA (cerebral vascular accident) SNOMED Code(s): 665104720 ICD Code: I63.9 - CEREBRAL INFARCTION, UNSPECIFIED Status: Chronic Priority: Medium Qualifiers: CVA mechanism: embolism Precerebral and cerebral artery: middle cerebral artery Laterality of affected vessel: left Qualified Code(s): I63.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 (3) Dementia SNOMED Code(s): 80974513 ICD Code: F03.90 - UNSPECIFIED DEMENTIA WITHOUT BEHAVIORAL DISTURBANCE Status: Chronic Priority: Medium Qualifiers: Dementia type: unspecified type Dementia behavioral disturbance: without behavioral disturbance Qualified Code(s): F03.90 - Unspecified dementia without behavioral disturbance (4) Hypokalemia SNOMED Code(s): 99070702 ICD Code: E87.6 - HYPOKALEMIA Status: Acute Problem List Initiated/Reviewed/Updated: Yes Orders Last 24hrs: Active Orders 24 hr Category Date Time Status Patient Status [ADT] Stat ADT 10/10/19 20:42 Active Blood Glucose Check, Bedside [RC] ONETIME Care 10/10/19 19:18 Active Cardiac Monitoring [RC] . DIRECTED Care 10/10/19 19:17 Active EKG Documentation Completion [RC] STAT Care 10/10/19 19:17 Active Oxygen Therapy, ED [RC] ASDIRECTED Care 10/10/19 19:17 Active Pulse Oximetry [RC] ASDIRECTED Care 10/10/19 19:17 Active CULTURE BLOOD [BC] Stat Lab 10/10/19 19:45 Received CULTURE BLOOD [BC] Stat Lab 10/10/19 20:09 Received CULTURE URINE [RM] Stat Lab 10/10/19 19:15 Received Sodium Chloride 0.9% [Normal Saline] 1,000 ml Med 10/10/19 19:30 Active IV ASDIRECTED Sodium Chloride 0.9% [Saline Flush] Med 10/10/19 19:19 Active 10 ml FLUSH ASDIRECTED PRN Sodium Chloride 0.9% [Saline Flush] Med 10/10/19 19:19 Active 2.5 ml FLUSH ASDIRECTED PRN Blood Culture x2 Reflex Set [OM.PC] Stat Oth 10/10/19 19:18 Ordered Saline Lock Insert [OM.PC] Stat Oth 10/10/19 19:17 Ordered Medication Orders Sodium Chloride (Normal Saline) 1,000 mls @ 125 mls/hr IV ASDIRECTED ROSY Last Admin: 10/10/19 23:04 Dose: 125 mls/hr Admin: 10/10/19 19:35 Dose: 999 mls/hr Sodium Chloride (Saline Flush) 10 ml FLUSH ASDIRECTED PRN PRN Reason: Keep Vein Open Sodium Chloride (Saline Flush) 2.5 ml FLUSH ASDIRECTED PRN PRN Reason: Keep Vein Open Assessment/Plan Comment:: 89 y/o F comes admitted for UTI Has h/o UTI in past month treated with macrolide but stopped as culture was not significant Will start Meropenem to cover ESBL, Vancomycin for MRSA Will start IVF, small bolus due to h/o Pleural effusion, watch for volume overload Cont oxygenation via NC Monitor and replete electrolytes as needed Hold Pain meds for now to avoid respiratory depression For right facial droop, will obtain MRI/MRA to rule out new stroke cont ASA, statin cont to monitor
[2019-10-11] MEDS: Aspirin 81 MG Tab.Chew PO SCH ×2 (00:26→20:54)
[2019-10-11] MEDS ORDERED: Meropenem 1 GM in Sodium Chloride 0.9% 100 ML IV SCH (01:15)
[2019-10-11] MEDS ORDERED: Vancomycin 1.5 GM in Sodium Chloride 0.9% 500 ML IV ONE (02:00)
[2019-10-11] MEDS ORDERED: Lactated Ringers 500 ML IV SCH (02:00)
[2019-10-11] MEDS ORDERED: Potassium Chloride Riders 20 MEQ in Premix Bag 1 BAG IV ONE (02:01)
[2019-10-11] MEDS ORDERED: Meropenem Premix 1 GM in Premix Bag 1 BAG IV SCH (03:30)
[2019-10-11 06:56] LABS: CARBON DIOXIDE,CO2 26.5 mmol/L (21.0-32.0); POTASSIUM,K 3.6 mmol/L (3.5-5.1)
[2019-10-11] MEDS: Levothyroxine 25 MCG Tab PO SCH (06:56)
[2019-10-11] MEDS ORDERED: cefTRIAXone 1 GM in Premix Bag 1 BAG IV SCH (09:00)
--- NOTE | 2019-10-11 11:11 | PCM.PN ---
- General Info Date of Service: 10/11/19 Admission Dx/Problem (Free Text): Admission Diagnosis/Problem Admission Diagnosis/Problem Urosepsis and R sided facial droop Subjective Update: First rounds patient doesn't awake, but withdraws to pain and stimulation. On seconda rounds she is more alert and answers simple questions. Soraya, daughter at bedside. Radha denies pain or any concerns for us. Otherwise doesn't answer questions. Functional Status: Reports: Pain Controlled - Patient Data Vitals - Most Recent: Last Vital Signs Temp 96.6 F 10/11/19 08:00 Pulse 50 L 10/11/19 08:00 Resp 16 10/11/19 08:00 BP 126/55 L 10/11/19 08:00 Pulse Ox 98 10/11/19 08:00 Weight - Most Recent: 63.503 kg Lab Results Last 24 Hours: Laboratory Results - last 24 hr 10/10/19 10/10/19 10/10/19 Range/Units 19:15 19:45 19:45 WBC 6.13 (4.0-11.0) K/uL RBC 3.68 L (4.30-5.90) M/uL Hgb 10.5 L (12.0-16.0) g/dL Hct 32.5 L (36.0-46.0) % MCV 88.3 (80.0-98.0) fL MCH 28.5 (27.0-32.0) pg MCHC 32.3 (31.0-37.0) g/dL RDW Std Deviation 46.6 (28.0-62.0) fl RDW Coeff of Megan 15 (11.0-15.0) % Plt Count 140 L (150-400) K/uL MPV 11.00 (7.40-12.00) fL Neut % (Auto) 93.6 H (48.0-80.0) % Lymph % (Auto) 2.4 L (16.0-40.0) % [place] % (Auto) 3.3 (0.0-15.0) % Eos % (Auto) 0.5 (0.0-7.0) % Baso % (Auto) 0.2 (0.0-1.5) % Neut # (Auto) 5.7 (1.4-5.7) K/uL Lymph # (Auto) 0.2 L (0.6-2.4) K/uL [place] # (Auto) 0.2 (0.0-0.8) K/uL Eos # (Auto) 0.0 (0.0-0.7) K/uL Baso # (Auto) 0.0 (0.0-0.1) K/uL Nucleated RBC % 0.0 /100WBC Nucleated RBCs # 0 K/uL Lactate 2.5 H* (0.20-2.00) mmol/L Sodium (136-145) mmol/L Potassium (3.5-5.1) mmol/L Chloride (98-107) mmol/L Carbon Dioxide (21.0-32.0) mmol/L BUN (7.0-18.0) mg/dL Creatinine (0.6-1.0) mg/dL Est Cr Clr Drug Dosing mL/min Estimated GFR (MDRD) ml/min Glucose (74-106) mg/dL Calcium (8.5-10.1) mg/dL Phosphorus (2.6-4.7) mg/dL Magnesium (1.8-2.4) mg/dL Total Bilirubin (0.2-1.0) mg/dL AST (15-37) IU/L ALT (14-63) IU/L Alkaline Phosphatase (46-116) U/L Total Protein (6.4-8.2) g/dL Albumin (3.4-5.0) g/dL Globulin (2.6-4.0) g/dL Albumin/Globulin Ratio (0.9-1.6) TSH 3rd Generation (0.36-3.74) uIU/mL Urine Color YELLOW Urine Appearance CLOUDY Urine pH 6.0 (5.0-8.0) Ur Specific [place] 1.020 (1.001-1.035) Urine Protein NEGATIVE (NEGATIVE) mg/dL Urine Glucose (UA) NEGATIVE (NEGATIVE) mg/dL Urine Ketones NEGATIVE (NEGATIVE) mg/dL Urine Occult Blood TRACE-LYSED H (NEGATIVE) Urine Nitrite POSITIVE H (NEGATIVE) Urine Bilirubin NEGATIVE (NEGATIVE) Urine Urobilinogen 0.2 (<2.0) EU/dL Ur Leukocyte Esterase TRACE H (NEGATIVE) Urine RBC 10-15 (0-2/HPF) Urine WBC 4-8 (0-5/HPF) Ur Epithelial Cells RARE (NONE-FEW) Urine Bacteria 3+ H (NEGATIVE) 10/10/19 10/11/19 10/11/19 Range/Units 19:45 00:05 05:52 WBC 5.04 (4.0-11.0) K/uL RBC 2.92 L (4.30-5.90) M/uL Hgb 8.4 L (12.0-16.0) g/dL Hct 26.4 L (36.0-46.0) % MCV 90.4 (80.0-98.0) fL MCH 28.8 (27.0-32.0) pg MCHC 31.8 (31.0-37.0) g/dL RDW Std Deviation 47.8 (28.0-62.0) fl RDW Coeff of Megan 15 (11.0-15.0) % Plt Count 102 L (150-400) K/uL MPV 11.70 (7.40-12.00) fL Neut % (Auto) 85.1 H (48.0-80.0) % Lymph % (Auto) 9.1 L (16.0-40.0) % [place] % (Auto) 5.2 (0.0-15.0) % Eos % (Auto) 0.6 (0.0-7.0) % Baso % (Auto) 0.0 (0.0-1.5) % Neut # (Auto) 4.3 (1.4-5.7) K/uL Lymph # (Auto) 0.5 L (0.6-2.4) K/uL [place] # (Auto) 0.3 (0.0-0.8) K/uL Eos # (Auto) 0.0 (0.0-0.7) K/uL Baso # (Auto) 0.0 (0.0-0.1) K/uL Nucleated RBC % 0.0 /100WBC Nucleated RBCs # 0 K/uL Lactate 2.4 H* (0.20-2.00) mmol/L Sodium 140 (136-145) mmol/L Potassium 3.1 L (3.5-5.1) mmol/L Chloride 104 (98-107) mmol/L Carbon Dioxide 20.1 L (21.0-32.0) mmol/L BUN 28 H (7.0-18.0) mg/dL Creatinine 1.0 (0.6-1.0) mg/dL Est Cr Clr Drug Dosing 36.40 mL/min Estimated GFR (MDRD) 52.3 ml/min Glucose 110 H (74-106) mg/dL Calcium 8.6 (8.5-10.1) mg/dL Phosphorus (2.6-4.7) mg/dL Magnesium (1.8-2.4) mg/dL Total Bilirubin 0.4 (0.2-1.0) mg/dL AST 29 (15-37) IU/L ALT 20 (14-63) IU/L Alkaline Phosphatase 92 (46-116) U/L Total Protein 6.0 L (6.4-8.2) g/dL Albumin 2.7 L (3.4-5.0) g/dL Globulin 3.3 (2.6-4.0) g/dL Albumin/Globulin Ratio 0.8 L (0.9-1.6) TSH 3rd Generation 2.54 (0.36-3.74) uIU/mL Urine Color Urine Appearance Urine pH (5.0-8.0) Ur Specific [place] (1.001-1.035) Urine Protein (NEGATIVE) mg/dL Urine Glucose (UA) (NEGATIVE) mg/dL Urine Ketones (NEGATIVE) mg/dL Urine Occult Blood (NEGATIVE) Urine Nitrite (NEGATIVE) Urine Bilirubin (NEGATIVE) Urine Urobilinogen (<2.0) EU/dL Ur Leukocyte Esterase (NEGATIVE) Urine RBC (0-2/HPF) Urine WBC (0-5/HPF) Ur Epithelial Cells (NONE-FEW) Urine Bacteria (NEGATIVE) 10/11/19 10/11/19 Range/Units 05:52 08:20 WBC (4.0-11.0) K/uL RBC (4.30-5.90) M/uL Hgb (12.0-16.0) g/dL Hct (36.0-46.0) % MCV (80.0-98.0) fL MCH (27.0-32.0) pg MCHC (31.0-37.0) g/dL RDW Std Deviation (28.0-62.0) fl RDW Coeff of Megan (11.0-15.0) % Plt Count (150-400) K/uL MPV (7.40-12.00) fL Neut % (Auto) (48.0-80.0) % Lymph % (Auto) (16.0-40.0) % Robeson % (Auto) (0.0-15.0) % Eos % (Auto) (0.0-7.0) % Baso % (Auto) (0.0-1.5) % Neut # (Auto) (1.4-5.7) K/uL Lymph # (Auto) (0.6-2.4) K/uL [place] # (Auto) (0.0-0.8) K/uL Eos # (Auto) (0.0-0.7) K/uL Baso # (Auto) (0.0-0.1) K/uL Nucleated RBC % /100WBC Nucleated RBCs # K/uL Lactate 1.2 (0.20-2.00) mmol/L Sodium 141 (136-145) mmol/L Potassium 3.6 (3.5-5.1) mmol/L Chloride 107 (98-107) mmol/L Carbon Dioxide 26.5 (21.0-32.0) mmol/L BUN 27 H (7.0-18.0) mg/dL Creatinine 1.1 H (0.6-1.0) mg/dL Est Cr Clr Drug Dosing 35.44 mL/min Estimated GFR (MDRD) 46.9 ml/min Glucose 128 H (74-106) mg/dL Calcium 8.1 L (8.5-10.1) mg/dL Phosphorus 3.4 (2.6-4.7) mg/dL Magnesium 1.5 L (1.8-2.4) mg/dL Total Bilirubin (0.2-1.0) mg/dL AST (15-37) IU/L ALT (14-63) IU/L Alkaline Phosphatase (46-116) U/L Total Protein (6.4-8.2) g/dL Albumin (3.4-5.0) g/dL Globulin (2.6-4.0) g/dL Albumin/Globulin Ratio (0.9-1.6) TSH 3rd Generation (0.36-3.74) uIU/mL Urine Color Urine Appearance Urine pH (5.0-8.0) Ur Specific [place] (1.001-1.035) Urine Protein (NEGATIVE) mg/dL Urine Glucose (UA) (NEGATIVE) mg/dL Urine Ketones (NEGATIVE) mg/dL Urine Occult Blood (NEGATIVE) Urine Nitrite (NEGATIVE) Urine Bilirubin (NEGATIVE) Urine Urobilinogen (<2.0) EU/dL Ur Leukocyte Esterase (NEGATIVE) Urine RBC (0-2/HPF) Urine WBC (0-5/HPF) Ur Epithelial Cells (NONE-FEW) Urine Bacteria (NEGATIVE) Candido Results Last 24 Hours: Microbiology 10/10/19 19:30 Influenza Type A Antigen Screen - Final Nasopharyngeal Swab NEGATIVE INFLUENZA A VIRUS AG REFERENCE RANGE: NEGATIVE Influenza Type B Antigen Screen - Final NEGATIVE INFLUENZA B VIRUS AG REFERENCE RANGE: NEGATIVE Med Orders - Current: Current Medications Aspirin (Aspirin) 81 mg PO BEDTIME [facility] Last Admin: 10/11/19 00:26 Dose: 81 mg Atorvastatin Calcium (Lipitor) 40 mg PO BEDTIME [facility] Escitalopram Oxalate (Lexapro) 5 mg PO DAILY [facility] Hydralazine HCl (Apresoline) 25 mg PO BEDTIME [facility] Lactated Ringer's (Ringers, Lactated) 500 mls @ 999 mls/hr IV ASDIRECTED [facility] Vancomycin HCl 1 gm/ Sodium (Chloride) 250 mls @ 166 mls/hr IV Q24H [facility]Y Meropenem/Sodium Chloride 1 gm (/ Premix) 50 mls @ 100 mls/hr IV Q12H [facility] Sodium Chloride (Normal Saline) 1,000 mls @ 50 mls/hr IV Q20H [facility] Levothyroxine Sodium (Levothyroxine) 25 mcg PO ACBREAKFAST [facility] Last Admin: 10/11/19 06:56 Dose: 25 mcg Metoprolol Succinate (Toprol Xl) 25 mg PO BEDTIME [facility]Y Sodium Chloride (Saline Flush) 10 ml FLUSH ASDIRECTED PRN PRN Reason: Keep Vein Open Sodium Chloride (Saline Flush) 2.5 ml FLUSH ASDIRECTED PRN PRN Reason: Keep Vein Open Vancomycin HCl (Pharmacy To Dose - Vancomycin) 1 dose .XX ASDIRECTED [facility] Discontinued Medications Acetaminophen (Tylenol) 650 mg RECTAL NOW ONE Stop: 10/10/19 19:21 Last Admin: 10/10/19 19:29 Dose: 650 mg Sodium Chloride (Normal Saline) 1,000 mls @ 125 mls/hr IV ASDIRECTED [facility] Last Admin: 10/10/19 23:04 Dose: 125 mls/hr Ceftriaxone Sodium/Dextrose 1 (gm/ Premix) 50 mls @ 100 mls/hr IV ONETIME ONE Stop: 10/10/19 20:20 Last Admin: 10/10/19 20:16 Dose: 100 mls/hr Ceftriaxone Sodium/Dextrose 1 (gm/ Premix) 50 mls @ 100 mls/hr IV Q24H [facility] Meropenem 1 gm/ Sodium (Chloride) 100 mls @ 200 mls/hr IV Q8H [facility] Last Admin: 10/11/19 06:01 Dose: Not Given Potassium Chloride 20 meq/ (Premix) 50 mls @ 25 mls/hr IV ONETIME ONE Stop: 10/11/19 04:00 Last Admin: 10/11/19 05:54 Dose: 25 mls/hr Meropenem/Sodium Chloride 1 gm (/ Premix) 50 mls @ 100 mls/hr IV Q8H [facility] Last Admin: 10/11/19 04:06 Dose: 100 mls/hr Vancomycin HCl (Vancomycin 1.5 Gm/300 Ml Bag) 300 mls @ 300 mls/hr IV NOW ONE Stop: 10/11/19 04:44 Last Admin: 10/11/19 04:44 Dose: 300 mls/hr Labetalol HCl (Normodyne) Confirm Administered Dose 100 mg .ROUTE .STK-MED ONE Stop: 10/10/19 20:24 Last Admin: 10/10/19 20:30 Dose: Not Given - Exam General: Alert, No Acute Distress. No: Oriented Lungs: Normal Respiratory Effort, Crackles (R base). No: Wheezing Cardiovascular: Regular Rate, Regular Rhythm, Bradycardia GI/Abdominal Exam: Normal Bowel Sounds, Soft, Non-Tender Extremities: Normal Inspection, Normal Range of Motion, Non-Tender, Pedal Edema (scant to +1 pitting to feet) Neurological: Other (R facial droop, family feels slightly improved.). No: Strength Equal Bilateral (L weakness, which is baseline from CVA) Psy/Mental Status: Alert Sepsis Event Note - Evaluation Sepsis Screening Result: No Definite Risk - Focused Exam Vital Signs: Vital Signs Temp Pulse Resp BP Pulse Ox 10/11/19 08:00 96.6 F 50 L 16 126/55 L 98 10/11/19 04:05 96.6 F 56 L 14 132/60 93 L Date Exam was Performed: 10/11/19 Time Exam was Performed: 12:47 - Problem List & Annotations (1) Sepsis SNOMED Code(s): 29311443 Code(s): A41.9 - SEPSIS, UNSPECIFIED ORGANISM Status: Acute Current Visit : Yes (2) Confusion SNOMED Code(s): 653650758 Code(s): R41.0 - DISORIENTATION, UNSPECIFIED Status: Acute Current Visit : Yes (3) Fever SNOMED Code(s): 398353921 Code(s): R50.9 - FEVER, UNSPECIFIED Status: Acute Current Visit: Yes Qualifiers: Fever type: due to other condition Qualified Code(s): R50.81 - Fever presenting with conditions classified elsewhere (4) Hypokalemia SNOMED Code(s): 61949896 Code(s): E87.6 - HYPOKALEMIA Status: Acute Current Visit: Yes (5) UTI, Urinary tract infectious disease SNOMED Code(s): 17817581 Code(s): N39.0 - URINARY TRACT INFECTION, SITE NOT SPECIFIED Status: Acute Current Visit: Yes (6) CVA (cerebral vascular accident) SNOMED Code(s): 429611450 Code(s): I63.9 - CEREBRAL INFARCTION, UNSPECIFIED Status: Chronic Priority: Medium Current Visit: No Qualifiers: CVA mechanism: embolism Precerebral and cerebral artery: middle cerebral artery Laterality of affected vessel: left Qualified Code(s): I63.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 (7) Dementia SNOMED Code(s): 50460613 Code(s): F03.90 - UNSPECIFIED DEMENTIA WITHOUT BEHAVIORAL DISTURBANCE Status: Chronic Priority: Medium Current Visit: No Qualifiers: Dementia type: unspecified type Dementia behavioral disturbance: without behavioral disturbance Qualified Code(s): F03.90 - Unspecified dementia without behavioral disturbance (8) HTN (hypertension) SNOMED Code(s): 37008727 Code(s): I10 - ESSENTIAL (PRIMARY) HYPERTENSION Status: Chronic Priority : High Current Visit: No Qualifiers: Hypertension type: essential hypertension Qualified Code(s): I10 - Essential (primary) hypertension - Problem List Review Problem List Initiated/Reviewed/Updated: Yes - My Orders Last 24 Hours: My Active Orders 10/11/19 10:29 Echo Comp wo Cont [US] Routine 10/11/19 10:45 Sodium Chloride 0.9% [Normal Saline] 1,000 ml IV Q20H - Plan Plan:: This 89 y/o F comes admitted for UTI, sepsis and suspected CVA 1. Urosepsis: Lactic acid elevated, no hypotension noted. Treated with Fluid IV resuscitation, lactic acid cleared this am. Patient remains hemodynamically stable. Due to past UTIs, continue with Meropenem to cover gram negative infection including ESBL and Vancomycin to cover MRSA. Monitor electrolytes. 2. Hypoxia: Now on RA today. R sided moderate Plueral effusion noted. WIll monitor, this has been stable for months. Watch fluid status to prevent worsening. 3. R facial droop: Suspected CVA, MRA/MRI ordered. ASA statin, allow for permissive HTN. monitor on telemetry. Obtain ECHO as well. VTE prophylaxis: Heparin. Dispo: 2-3 days pending improvement.
[2019-10-11] MEDS: Sodium Chloride 0.9% 1,000 ML IV SCH (11:17)
[2019-10-11] MEDS: Escitalopram 10 MG Tab PO SCH (13:47)
[2019-10-11] MEDS: Meropenem Premix 1 GM in Premix Bag 1 BAG IV SCH (15:45)
[2019-10-11] MEDS ORDERED: Metoprolol Succinate 25 MG Tab.ER PO SCH (21:00)
[2019-10-11] MEDS ORDERED: atorvaSTATin 40 MG Tab PO SCH (21:00)
[2019-10-11] MEDS ORDERED: hydrALAZINE 25 MG Tab PO SCH (21:00)
[2019-10-12] MEDS: Acetaminophen 325 MG Tab PO PRN ×2 (00:14→16:50)
[2019-10-12] MEDS: Meropenem Premix 1 GM in Premix Bag 1 BAG IV SCH ×2 (03:39→16:45)
[2019-10-12] MEDS: Sodium Chloride 0.9% 1,000 ML IV SCH (06:33)
[2019-10-12] MEDS: Levothyroxine 25 MCG Tab PO SCH (06:35)
[2019-10-12 06:37] LABS: CARBON DIOXIDE,CO2 22.2 mmol/L (21.0-32.0); POTASSIUM,K 3.5 mmol/L (3.5-5.1)
[2019-10-12] MEDS: Escitalopram 10 MG Tab PO SCH (09:02)
--- NOTE | 2019-10-12 09:50 | PCM.PN ---
- General Info Date of Service: 10/12/19 Admission Dx/Problem (Free Text): Admission Diagnosis/Problem Admission Diagnosis/Problem Urosepsis and R sided facial droop Subjective Update: Much more alert today. Reports pain to R great toe. Has had Gabapentin on hold due to lethargy. No other concerns Daughter at bedside. Functional Status: Reports: Pain Controlled, Tolerating Diet. Denies: Ambulating - Review of Systems General: Reports: No Symptoms Pulmonary: Reports: No Symptoms. Denies: Shortness of Breath Cardiovascular: Reports: No Symptoms. Denies: Chest Pain Gastrointestinal: Reports: No Symptoms. Denies: Abdominal Pain, Nausea, Vomiting Genitourinary: Reports: Incontinence (baseline). Denies: Dysuria, Frequency, Burning Skin: Reports: No Symptoms Neurological: Reports: No Symptoms Psychiatric: Reports: No Symptoms - Patient Data Vitals - Most Recent: Last Vital Signs Temp 97.7 F 10/12/19 08:00 Pulse 61 10/12/19 08:00 Resp 18 10/12/19 08:00 BP 176/74 H 10/12/19 08:00 Pulse Ox 93 L 10/12/19 08:00 Weight - Most Recent: 63.503 kg I&O - Last 24 Hours: Intake & Output 10/11/19 10/12/19 10/12/19 22:59 06:59 14:59 Intake Total 324 120 Output Total 353 Balance -29 120 Lab Results Last 24 Hours: Laboratory Results - last 24 hr 10/11/19 10/12/19 10/12/19 Range/Units 21:46 06:05 06:05 WBC 3.31 L (4.0-11.0) K/uL RBC 3.23 L (4.30-5.90) M/uL Hgb 9.3 L (12.0-16.0) g/dL Hct 28.5 L (36.0-46.0) % MCV 88.2 (80.0-98.0) fL MCH 28.8 (27.0-32.0) pg MCHC 32.6 (31.0-37.0) g/dL RDW Std Deviation 45.9 (28.0-62.0) fl RDW Coeff of Megan 14 (11.0-15.0) % Plt Count 85 L (150-400) K/uL MPV 11.00 (7.40-12.00) fL Neut % (Auto) 68.6 (48.0-80.0) % Lymph % (Auto) 19.6 (16.0-40.0) % [place] % (Auto) 8.5 (0.0-15.0) % Eos % (Auto) 3.0 (0.0-7.0) % Baso % (Auto) 0.3 (0.0-1.5) % Neut # (Auto) 2.3 (1.4-5.7) K/uL Lymph # (Auto) 0.7 (0.6-2.4) K/uL [place] # (Auto) 0.3 (0.0-0.8) K/uL Eos # (Auto) 0.1 (0.0-0.7) K/uL Baso # (Auto) 0.0 (0.0-0.1) K/uL Nucleated RBC % 0.0 /100WBC Nucleated RBCs # 0 K/uL Sodium 140 (136-145) mmol/L Potassium 3.5 (3.5-5.1) mmol/L Chloride 106 (98-107) mmol/L Carbon Dioxide 22.2 (21.0-32.0) mmol/L BUN 20 H (7.0-18.0) mg/dL Creatinine 0.9 (0.6-1.0) mg/dL Est Cr Clr Drug Dosing 43.32 mL/min Estimated GFR (MDRD) 59.1 ml/min Glucose 84 (74-106) mg/dL POC Glucose 78 (60-110) mg/dL Calcium 8.4 L (8.5-10.1) mg/dL Magnesium (1.8-2.4) mg/dL 10/12/19 Range/Units 06:05 WBC (4.0-11.0) K/uL RBC (4.30-5.90) M/uL Hgb (12.0-16.0) g/dL Hct (36.0-46.0) % MCV (80.0-98.0) fL MCH (27.0-32.0) pg MCHC (31.0-37.0) g/dL RDW Std Deviation (28.0-62.0) fl RDW Coeff of Megan (11.0-15.0) % Plt Count (150-400) K/uL MPV (7.40-12.00) fL Neut % (Auto) (48.0-80.0) % Lymph % (Auto) (16.0-40.0) % [place] % (Auto) (0.0-15.0) % Eos % (Auto) (0.0-7.0) % Baso % (Auto) (0.0-1.5) % Neut # (Auto) (1.4-5.7) K/uL Lymph # (Auto) (0.6-2.4) K/uL [place] # (Auto) (0.0-0.8) K/uL Eos # (Auto) (0.0-0.7) K/uL Baso # (Auto) (0.0-0.1) K/uL Nucleated RBC % /100WBC Nucleated RBCs # K/uL Sodium (136-145) mmol/L Potassium (3.5-5.1) mmol/L Chloride (98-107) mmol/L Carbon Dioxide (21.0-32.0) mmol/L BUN (7.0-18.0) mg/dL Creatinine (0.6-1.0) mg/dL Est Cr Clr Drug Dosing mL/min Estimated GFR (MDRD) ml/min Glucose (74-106) mg/dL POC Glucose (60-110) mg/dL Calcium (8.5-10.1) mg/dL Magnesium 1.6 L (1.8-2.4) mg/dL Candido Results Last 24 Hours: Microbiology 10/10/19 19:15 Urine Culture - Final Urine, Clean Catch MIXED TIMUR >100,000 CFU/ML 10/10/19 20:09 Aerobic Blood Culture - Preliminary Blood - Venous - Lab Draw NO GROWTH AFTER 1 DAY Anaerobic Blood Culture - Preliminary NO GROWTH AFTER 1 DAY 10/10/19 19:45 Aerobic Blood Culture - Preliminary Blood - Venous NO GROWTH AFTER 1 DAY Anaerobic Blood Culture - Preliminary NO GROWTH AFTER 1 DAY Med Orders - Current: Current Medications Acetaminophen (Tylenol) 650 mg PO Q4H PRN PRN Reason: Pain Last Admin: 10/12/19 00:14 Dose: 650 mg Aspirin (Aspirin) 81 mg PO BEDTIME [facility] Last Admin: 10/11/19 20:54 Dose: 81 mg Atorvastatin Calcium (Lipitor) 40 mg PO BEDTIME [facility] Last Admin: 10/11/19 20:54 Dose: 40 mg Escitalopram Oxalate (Lexapro) 5 mg PO DAILY [facility] Last Admin: 10/12/19 09:02 Dose: 5 mg Gabapentin (Neurontin) 100 mg PO BEDTIME [facility] Hydralazine HCl (Apresoline) 25 mg PO BEDTIME [facility] Vancomycin HCl 1 gm/ Sodium (Chloride) 250 mls @ 166 mls/hr IV Q24H [facility] Last Admin: 10/12/19 01:49 Dose: 166 mls/hr Meropenem/Sodium Chloride 1 gm (/ Premix) 50 mls @ 100 mls/hr IV Q12H [facility] Last Admin: 10/12/19 03:39 Dose: 100 mls/hr Sodium Chloride (Normal Saline) 1,000 mls @ 50 mls/hr IV Q20H [facility] Last Admin: 10/12/19 06:33 Dose: 50 mls/hr Levothyroxine Sodium (Levothyroxine) 25 mcg PO ACBREAKFAST [facility] Last Admin: 10/12/19 06:35 Dose: 25 mcg Lisinopril (Prinivil) 20 mg PO BEDTIME [facility] Sodium Chloride (Saline Flush) 10 ml FLUSH ASDIRECTED PRN PRN Reason: Keep Vein Open Sodium Chloride (Saline Flush) 2.5 ml FLUSH ASDIRECTED PRN PRN Reason: Keep Vein Open Vancomycin HCl (Pharmacy To Dose - Vancomycin) 1 dose .XX ASDIRECTED [facility] Discontinued Medications Acetaminophen (Tylenol) 650 mg RECTAL NOW ONE Stop: 10/10/19 19:21 Last Admin: 10/10/19 19:29 Dose: 650 mg Hydralazine HCl (Apresoline) 25 mg PO BEDTIME [facility] Sodium Chloride (Normal Saline) 1,000 mls @ 125 mls/hr IV ASDIRECTED [facility] Last Admin: 10/10/19 23:04 Dose: 125 mls/hr Ceftriaxone Sodium/Dextrose 1 (gm/ Premix) 50 mls @ 100 mls/hr IV ONETIME ONE Stop: 10/10/19 20:20 Last Admin: 10/10/19 20:16 Dose: 100 mls/hr Ceftriaxone Sodium/Dextrose 1 (gm/ Premix) 50 mls @ 100 mls/hr IV Q24H [facility] Meropenem 1 gm/ Sodium (Chloride) 100 mls @ 200 mls/hr IV Q8H [facility] Last Admin: 10/11/19 06:01 Dose: Not Given Lactated Ringer's (Ringers, Lactated) 500 mls @ 999 mls/hr IV ASDIRECTED [facility] Potassium Chloride 20 meq/ (Premix) 50 mls @ 25 mls/hr IV ONETIME ONE Stop: 10/11/19 04:00 Last Admin: 10/11/19 05:54 Dose: 25 mls/hr Meropenem/Sodium Chloride 1 gm (/ Premix) 50 mls @ 100 mls/hr IV Q8H [facility] Last Admin: 10/11/19 04:06 Dose: 100 mls/hr Vancomycin HCl (Vancomycin 1.5 Gm/300 Ml Bag) 300 mls @ 300 mls/hr IV NOW ONE Stop: 10/11/19 04:44 Last Admin: 10/11/19 04:44 Dose: 300 mls/hr Labetalol HCl (Normodyne) Confirm Administered Dose 100 mg .ROUTE .STK-MED ONE Stop: 10/10/19 20:24 Last Admin: 10/10/19 20:30 Dose: Not Given Metoprolol Succinate (Toprol Xl) 25 mg PO BEDTIME [facility] - Exam General: Alert, Cooperative, No Acute Distress. No: Oriented (at baseline) Lungs: Clear to Auscultation, Normal Respiratory Effort Cardiovascular: Regular Rate, Regular Rhythm, Murmurs GI/Abdominal Exam: Normal Bowel Sounds, Soft, Non-Tender Back Exam: Normal Inspection, Full Range of Motion Extremities: Normal Inspection, Normal Range of Motion, Non-Tender Neurological: No New Focal Deficit. No: Strength Equal Bilateral (L weaker at baseline.) Psy/Mental Status: Alert, Normal Affect, Normal Mood Sepsis Event Note - Evaluation Sepsis Screening Result: No Definite Risk - Focused Exam Vital Signs: Vital Signs Temp Pulse Resp BP Pulse Ox 10/12/19 08:00 97.7 F 61 18 176/74 H 93 L 10/12/19 04:50 97.3 F 46 L 15 181/72 H 91 L 10/12/19 00:00 97.8 F 69 18 169/71 H 90 L Date Exam was Performed: 10/12/19 Time Exam was Performed: 13:02 - Problem List & Annotations (1) Sepsis SNOMED Code(s): 18902626 Code(s): A41.9 - SEPSIS, UNSPECIFIED ORGANISM Status: Resolved Current Visit: Yes (2) Confusion SNOMED Code(s): 693473920 Code(s): R41.0 - DISORIENTATION, UNSPECIFIED Status: Acute Current Visit : Yes (3) Fever SNOMED Code(s): 979210341 Code(s): R50.9 - FEVER, UNSPECIFIED Status: Acute Current Visit: Yes Qualifiers: Fever type: due to other condition Qualified Code(s): R50.81 - Fever presenting with conditions classified elsewhere (4) Hypokalemia SNOMED Code(s): 47100042 Code(s): E87.6 - HYPOKALEMIA Status: Acute Current Visit: Yes (5) UTI, Urinary tract infectious disease SNOMED Code(s): 30764102 Code(s): N39.0 - URINARY TRACT INFECTION, SITE NOT SPECIFIED Status: Acute Current Visit: Yes (6) CVA (cerebral vascular accident) SNOMED Code(s): 216621238 Code(s): I63.9 - CEREBRAL INFARCTION, UNSPECIFIED Status: Chronic Priority: Medium Current Visit: No Qualifiers: CVA mechanism: embolism Precerebral and cerebral artery: middle cerebral artery Laterality of affected vessel: left Qualified Code(s): I63.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 (7) Dementia SNOMED Code(s): 22635062 Code(s): F03.90 - UNSPECIFIED DEMENTIA WITHOUT BEHAVIORAL DISTURBANCE Status: Chronic Priority: Medium Current Visit: No Qualifiers: Dementia type: unspecified type Dementia behavioral disturbance: without behavioral disturbance Qualified Code(s): F03.90 - Unspecified dementia without behavioral disturbance (8) HTN (hypertension) SNOMED Code(s): 24238703 Code(s): I10 - ESSENTIAL (PRIMARY) HYPERTENSION Status: Chronic Priority : High Current Visit: No Qualifiers: Hypertension type: essential hypertension Qualified Code(s): I10 - Essential (primary) hypertension - Problem List Review Problem List Initiated/Reviewed/Updated: Yes - My Orders Last 24 Hours: My Active Orders 10/11/19 10:29 Echo Comp wo Cont [US] Routine 10/11/19 10:45 Sodium Chloride 0.9% [Normal Saline] 1,000 ml IV Q20H 10/11/19 11:12 Consult to Speech Language Pathology [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 Urosepsis: Sepsis resolved. UC returned Mixed timur. Patient remains hemodynamically stable. Due to past UTIs, continue with Meropenem to cover gram negative infection including ESBL. 2. Hypoxia: resolved. Will monitor. 3. R facial droop: unable to obtain MRA/MRI due to patient moving. No further facial droop. ASA s, HTN. monitor on telemetry. ECHO pending. VTE prophylaxis: Heparin. Dispo: 2-3 days pending improvement.
--- NOTE | 2019-10-12 10:11 | MR ---
EXAM DATE: 10/10/19 PATIENT'S AGE: 89 Patient: JADIEL AMAYA Facility: [facility] Site . Site : [id number] Study: MRI-Head [id number]/[id number] 5:45:00 PM Ordering Physician: Baron Sandy Final Report: INDICATION: Mental status change. TECHNIQUE: Axial diffusion weighted sequences are provided. No other sequence could be acquired. This is compared to prior CT of the head from October 02, 2019. FINDINGS: Stable moderate atrophy. Stable moderate prominence of the ventricles. This constellation of findings may represent changes related to a component of communicating hydrocephalus such as NPH. No suspicious regions of restricted diffusion. Chronic infarcts of the right basal thalamus, right joão and right cerebellum. Findings suggestive of chronic infarcts in the right basal ganglia. IMPRESSION: 1. Limited MRI of the head. 2. No daljit evidence of acute infarcts. 3. Small chronic infarcts of the right basal ganglia, cerebellum, joão and thalamus. Dictated by Ricardo Preciado MD @ Oct 11 2019 8:09PM Signed by: Ricardo Preciado MD @10/11/2019 8:12:32 PM (Electronic Signature) Report Signed by Proxy. YANNA
[2019-10-12] MEDS ORDERED: Magnesium Sulfate/Water 2 GM in Premix Bag 1 BAG IV ONE (10:51)
[2019-10-12] MEDS ORDERED: hydrALAZINE 25 MG Tab PO STA (13:09)
[2019-10-12] MEDS ORDERED: Lisinopril 10 MG Tab PO ONE (13:57)
[2019-10-12] MEDS ORDERED: hydrALAZINE 20 MG/ML SDV IVPUSH PRN (16:37)
[2019-10-12] MEDS: Gabapentin 100 MG Cap PO SCH (20:56)
[2019-10-12] MEDS: Aspirin 81 MG Tab.Chew PO SCH (20:57)
[2019-10-12] MEDS: hydrALAZINE 25 MG Tab PO SCH (20:57)
[2019-10-12] MEDS ORDERED: hydrALAZINE 25 MG Tab PO SCH (21:00)
[2019-10-12] MEDS ORDERED: Lisinopril 10 MG Tab PO SCH (21:00)
[2019-10-13] MEDS: hydrALAZINE 25 MG Tab PO SCH ×5 (00:37→20:18)
[2019-10-13] MEDS: Meropenem Premix 1 GM in Premix Bag 1 BAG IV SCH ×2 (03:08→15:49)
[2019-10-13 05:30] LABS: BLOOD UREA NITROGEN,BUN 12 mg/dL (7.0-18.0); CARBON DIOXIDE,CO2 26.9 mmol/L (21.0-32.0); CHLORIDE,CL 104 mmol/L (98-107); GLUCOSE RANDOM 108 mg/dL (74-106); POTASSIUM,K 3.3 mmol/L (3.5-5.1); SODIUM,NA 140 mmol/L (136-145)
[2019-10-13] MEDS: Levothyroxine 25 MCG Tab PO SCH (06:42)
--- NOTE | 2019-10-13 09:15 | PCM.PN ---
- General Info Date of Service: 10/13/19 Admission Dx/Problem (Free Text): Admission Diagnosis/Problem Admission Diagnosis/Problem Urosepsis and R sided facial droop Subjective Update: Much improved today. No pain at all. Continues to be very alert and talkative. No concerns today. Functional Status: Reports: Pain Controlled, Tolerating Diet, Ambulating, Urinating - Review of Systems General: Reports: No Symptoms. Denies: Weakness, Fatigue, Malaise Pulmonary: Reports: No Symptoms. Denies: Shortness of Breath Cardiovascular: Reports: No Symptoms. Denies: Chest Pain Gastrointestinal: Reports: No Symptoms. Denies: Abdominal Pain, Nausea, Vomiting Genitourinary: Reports: No Symptoms. Denies: Dysuria, Frequency, Burning Neurological: Reports: No Symptoms Psychiatric: Reports: No Symptoms - Patient Data Vitals - Most Recent: Last Vital Signs Temp 99.3 F 10/13/19 07:20 Pulse 73 10/13/19 07:20 Resp 16 10/13/19 07:20 BP 179/75 H 10/13/19 07:20 Pulse Ox 94 L 10/13/19 07:20 Weight - Most Recent: 63.503 kg I&O - Last 24 Hours: Intake & Output 10/12/19 10/13/19 10/13/19 22:59 06:59 14:59 Intake Total 300 400 Output Total 0 0 Balance 300 400 Lab Results Last 24 Hours: Laboratory Results - last 24 hr 10/12/19 10/13/19 10/13/19 Range/Units 06:05 05:04 05:04 WBC 4.04 (4.0-11.0) K/uL RBC 3.76 L (4.30-5.90) M/uL Hgb 10.7 L (12.0-16.0) g/dL Hct 32.2 L (36.0-46.0) % MCV 85.6 (80.0-98.0) fL MCH 28.5 (27.0-32.0) pg MCHC 33.2 (31.0-37.0) g/dL RDW Std Deviation 42.9 (28.0-62.0) fl RDW Coeff of Megan 14 (11.0-15.0) % Plt Count 115 L (150-400) K/uL MPV 10.60 (7.40-12.00) fL Neut % (Auto) 68.8 (48.0-80.0) % Lymph % (Auto) 18.6 (16.0-40.0) % Aiken % (Auto) 9.4 (0.0-15.0) % Eos % (Auto) 2.7 (0.0-7.0) % Baso % (Auto) 0.5 (0.0-1.5) % Neut # (Auto) 2.8 (1.4-5.7) K/uL Lymph # (Auto) 0.8 (0.6-2.4) K/uL Aiken # (Auto) 0.4 (0.0-0.8) K/uL Eos # (Auto) 0.1 (0.0-0.7) K/uL Baso # (Auto) 0.0 (0.0-0.1) K/uL Nucleated RBC % 0.0 /100WBC Nucleated RBCs # 0 K/uL Sodium 140 (136-145) mmol/L Potassium 3.3 L (3.5-5.1) mmol/L Chloride 104 (98-107) mmol/L Carbon Dioxide 26.9 (21.0-32.0) mmol/L BUN 12 (7.0-18.0) mg/dL Creatinine 0.8 (0.6-1.0) mg/dL Est Cr Clr Drug Dosing 48.73 mL/min Estimated GFR (MDRD) > 60.0 ml/min Glucose 108 H (74-106) mg/dL Calcium 8.6 (8.5-10.1) mg/dL Triglycerides 111 (0-200) mg/dL Cholesterol 112 (50-200) mg/dL LDL Cholesterol, Calc 67 (60-180) mg/dL VLDL Cholesterol 22 (5-55) mg/dL HDL Cholesterol 23 L (40-60) mg/dL Cholesterol/HDL Ratio 4.9 (3.3-6.0) Candido Results Last 24 Hours: Microbiology 10/10/19 20:09 Aerobic Blood Culture - Preliminary Blood - Venous - Lab Draw NO GROWTH AFTER 2 DAYS Anaerobic Blood Culture - Preliminary NO GROWTH AFTER 2 DAYS 10/10/19 19:45 Aerobic Blood Culture - Preliminary Blood - Venous NO GROWTH AFTER 2 DAYS Anaerobic Blood Culture - Preliminary NO GROWTH AFTER 2 DAYS 10/10/19 19:15 Urine Culture - Final Urine, Clean Catch MIXED TIMUR >100,000 CFU/ML Med Orders - Current: Current Medications Acetaminophen (Tylenol) 650 mg PO Q4H PRN PRN Reason: Pain Last Admin: 10/12/19 16:50 Dose: 650 mg Aspirin (Aspirin) 81 mg PO BEDTIME [facility] Last Admin: 10/12/19 20:57 Dose: 81 mg Escitalopram Oxalate (Lexapro) 5 mg PO DAILY [facility] Last Admin: 10/12/19 09:02 Dose: 5 mg Gabapentin (Neurontin) 100 mg PO BEDTIME [facility] Last Admin: 10/12/19 20:56 Dose: 100 mg Hydralazine HCl (Apresoline) 20 mg IVPUSH Q4H PRN PRN Reason: SBP>180 Last Admin: 10/12/19 17:03 Dose: 20 mg Hydralazine HCl (Apresoline) 25 mg PO Q6H [facility] Last Admin: 10/13/19 06:43 Dose: 25 mg Meropenem/Sodium Chloride 1 gm (/ Premix) 50 mls @ 100 mls/hr IV Q12H [facility] Last Admin: 10/13/19 03:08 Dose: 100 mls/hr Levothyroxine Sodium (Levothyroxine) 25 mcg PO ACBREAKFAST [facility] Last Admin: 10/13/19 06:42 Dose: 25 mcg Lisinopril (Prinivil) 20 mg PO BEDTIME [facility] Last Admin: 10/12/19 20:56 Dose: 20 mg Sodium Chloride (Saline Flush) 10 ml FLUSH ASDIRECTED PRN PRN Reason: Keep Vein Open Sodium Chloride (Saline Flush) 2.5 ml FLUSH ASDIRECTED PRN PRN Reason: Keep Vein Open Vancomycin HCl (Pharmacy To Dose - Vancomycin) 1 dose .XX ASDIRECTED [facility] Discontinued Medications Acetaminophen (Tylenol) 650 mg RECTAL NOW ONE Stop: 10/10/19 19:21 Last Admin: 10/10/19 19:29 Dose: 650 mg Atorvastatin Calcium (Lipitor) 40 mg PO BEDTIME [facility] Last Admin: 10/11/19 20:54 Dose: 40 mg Hydralazine HCl (Apresoline) 25 mg PO BEDTIME [facility] Hydralazine HCl (Apresoline) 25 mg PO BEDTIME [facility] Hydralazine HCl (Apresoline) 25 mg PO NOW STA Stop: 10/12/19 13:10 Last Admin: 10/12/19 13:50 Dose: 25 mg Sodium Chloride (Normal Saline) 1,000 mls @ 125 mls/hr IV ASDIRECTED [facility] Last Admin: 10/10/19 23:04 Dose: 125 mls/hr Ceftriaxone Sodium/Dextrose 1 (gm/ Premix) 50 mls @ 100 mls/hr IV ONETIME ONE Stop: 10/10/19 20:20 Last Admin: 10/10/19 20:16 Dose: 100 mls/hr Ceftriaxone Sodium/Dextrose 1 (gm/ Premix) 50 mls @ 100 mls/hr IV Q24H [facility] Meropenem 1 gm/ Sodium (Chloride) 100 mls @ 200 mls/hr IV Q8H [facility] Last Admin: 10/11/19 06:01 Dose: Not Given Lactated Ringer's (Ringers, Lactated) 500 mls @ 999 mls/hr IV ASDIRECTED [facility] Potassium Chloride 20 meq/ (Premix) 50 mls @ 25 mls/hr IV ONETIME ONE Stop: 10/11/19 04:00 Last Admin: 10/11/19 05:54 Dose: 25 mls/hr Vancomycin HCl 1 gm/ Sodium (Chloride) 250 mls @ 166 mls/hr IV Q24H [facility] Last Admin: 10/12/19 01:49 Dose: 166 mls/hr Meropenem/Sodium Chloride 1 gm (/ Premix) 50 mls @ 100 mls/hr IV Q8H [facility] Last Admin: 10/11/19 04:06 Dose: 100 mls/hr Vancomycin HCl (Vancomycin 1.5 Gm/300 Ml Bag) 300 mls @ 300 mls/hr IV NOW ONE Stop: 10/11/19 04:44 Last Admin: 10/11/19 04:44 Dose: 300 mls/hr Sodium Chloride (Normal Saline) 1,000 mls @ 50 mls/hr IV Q20H [facility] Last Admin: 10/12/19 06:33 Dose: 50 mls/hr Magnesium Sulfate 2 gm/ Premix 50 mls @ 50 mls/hr IV ONETIME ONE Stop: 10/12/19 11:50 Last Admin: 10/12/19 11:19 Dose: 50 mls/hr Labetalol HCl (Normodyne) Confirm Administered Dose 100 mg .ROUTE .STK-MED ONE Stop: 10/10/19 20:24 Last Admin: 10/10/19 20:30 Dose: Not Given Lisinopril (Prinivil) 20 mg PO ONETIME ONE Stop: 10/12/19 13:58 Last Admin: 10/12/19 14:18 Dose: 20 mg Lisinopril (Prinivil) 20 mg PO BEDTIME [facility] Metoprolol Succinate (Toprol Xl) 25 mg PO BEDTIME [facility] - Exam General: Alert, Oriented, Cooperative, No Acute Distress Lungs: Clear to Auscultation, Normal Respiratory Effort Cardiovascular: Regular Rate, Regular Rhythm GI/Abdominal Exam: Normal Bowel Sounds, Soft Back Exam: Normal Inspection, Full Range of Motion Extremities: Normal Inspection, Normal Range of Motion, Non-Tender Psy/Mental Status: Alert, Normal Affect, Normal Mood Sepsis Event Note - Evaluation Sepsis Screening Result: No Definite Risk - Focused Exam Vital Signs: Vital Signs Temp Pulse Resp BP BP Pulse Ox 10/13/19 07:20 99.3 F 73 16 179/75 H 94 L 10/13/19 06:43 165/84 H 165/84 H 10/13/19 03:47 97.0 F 78 17 167/73 H 95 10/13/19 00:37 168/80 H 10/12/19 22:33 83 169/80 H Date Exam was Performed: 10/13/19 Time Exam was Performed: 09:09 - Problem List & Annotations (1) Sepsis SNOMED Code(s): 09412091 Code(s): A41.9 - SEPSIS, UNSPECIFIED ORGANISM Status: Resolved Current Visit: Yes (2) Confusion SNOMED Code(s): 680034107 Code(s): R41.0 - DISORIENTATION, UNSPECIFIED Status: Acute Current Visit : Yes (3) Fever SNOMED Code(s): 174848697 Code(s): R50.9 - FEVER, UNSPECIFIED Status: Acute Current Visit: Yes Qualifiers: Fever type: due to other condition Qualified Code(s): R50.81 - Fever presenting with conditions classified elsewhere (4) Hypokalemia SNOMED Code(s): 72981752 Code(s): E87.6 - HYPOKALEMIA Status: Acute Current Visit: Yes (5) UTI, Urinary tract infectious disease SNOMED Code(s): 41553298 Code(s): N39.0 - URINARY TRACT INFECTION, SITE NOT SPECIFIED Status: Acute Current Visit: Yes (6) CVA (cerebral vascular accident) SNOMED Code(s): 261769540 Code(s): I63.9 - CEREBRAL INFARCTION, UNSPECIFIED Status: Chronic Priority: Medium Current Visit: No Qualifiers: CVA mechanism: embolism Precerebral and cerebral artery: middle cerebral artery Laterality of affected vessel: left Qualified Code(s): I63.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 (7) Dementia SNOMED Code(s): 94194103 Code(s): F03.90 - UNSPECIFIED DEMENTIA WITHOUT BEHAVIORAL DISTURBANCE Status: Chronic Priority: Medium Current Visit: No Qualifiers: Dementia type: unspecified type Dementia behavioral disturbance: without behavioral disturbance Qualified Code(s): F03.90 - Unspecified dementia without behavioral disturbance (8) HTN (hypertension) SNOMED Code(s): 45130164 Code(s): I10 - ESSENTIAL (PRIMARY) HYPERTENSION Status: Chronic Priority : High Current Visit: No Qualifiers: Hypertension type: essential hypertension Qualified Code(s): I10 - Essential (primary) hypertension - Problem List Review Problem List Initiated/Reviewed/Updated: Yes - My Orders Last 24 Hours: My Active Orders 10/12/19 10:15 Up to Chair [RC] ASDIRECTED Consult to Physical Therapy [PT Evaluation and Treatment] [CONS] Routine 10/12/19 16:37 hydrALAZINE [Apresoline] 20 mg IVPUSH Q4H PRN 10/12/19 21:00 Gabapentin [Neurontin] 100 mg PO BEDTIME lisinopriL [Prinivil] 20 mg PO BEDTIME 10/12/19 Lunch Regular Diet [DIET] - Plan Plan:: This 89 y/o F comes admitted for UTI, sepsis and suspected CVA 1. Urosepsis: Sepsis resolved. UC returned Mixed timur. Patient remains hemodynamically stable. Due to past UTIs, continue with Meropenem to cover gram negative infection including ESBL. Day 5 of treatment 10/14, then treatment is complete. 2. Hypoxia: resolved. Will monitor. 3. R facial droop: resolved. Unable to obtain MRI. ECHO pending. 4. HTN: Elevated, correct dosing of BP meds started and BP has improved. VTE prophylaxis: Heparin. Dispo: 2-3 days pending improvement.
[2019-10-13] MEDS: Metoprolol Succinate 25 MG Tab.ER PO SCH ×2 (09:52→21:24)
[2019-10-13] MEDS: Lisinopril 10 MG Tab PO SCH ×2 (09:52→21:23)
[2019-10-13] MEDS: Escitalopram 10 MG Tab PO SCH (09:53)
[2019-10-13] MEDS ORDERED: Lisinopril 10 MG Tab PO SCH (21:00)
[2019-10-13] MEDS: Gabapentin 100 MG Cap PO SCH (21:23)
[2019-10-13] MEDS: Aspirin 81 MG Tab.Chew PO SCH (21:23)
[2019-10-14] MEDS: hydrALAZINE 25 MG Tab PO SCH ×3 (01:07→14:13)
[2019-10-14] MEDS: Meropenem Premix 1 GM in Premix Bag 1 BAG IV SCH (04:03)
[2019-10-14 06:47] LABS: CARBON DIOXIDE,CO2 27.1 mmol/L (21.0-32.0); POTASSIUM,K 3.3 mmol/L (3.5-5.1)
[2019-10-14] MEDS: Levothyroxine 25 MCG Tab PO SCH (06:48)
--- NOTE | 2019-10-14 08:43 | PCM.DCSUM1 ---
Discharge Summary - Hospital Course HPI Initial Comments: Admission Date: 10/10/19 Discharge Date: 10/14/19 Admission Diagnosis: 1. Urosepsis 2. Right facial droop 3. HTN 4. Hypoxia Discharge Diagnosis: 1. Urosepsis-resolved 2. Right facial droop-resolved 3. HTN 4. Hypoxia- resolved 5. Hypomagnesemia-resolved Procedures: None Consults: None Hospital Course: The patient is an 89-year-old female who lives at home with her daughter and has a history of hypertension, CVA, hypothyroidism ,pleural effusion, chf presents via EMS after the daughter noted that she was more confused and her O2 sats were low in the 80s this evening. Patient had a UTI a month ago but her antibiotics (macrolide) were stopped around [place] because the culture showed mixed timur. . In ER her temperature is 103.5. The daughter says she has been eating and drinking normally. Daughter also noted new facial drop on right side. In ER CT head was negative for acute stroke. CXR showed moderate to large right sided pleural effusion. Patient was found to have normal WBC but high Neutrophils, UA showed UTI. Lactic acid was mildly elevated. Patient was admitted to the medical floor. For urosepsis, treated with meropenem to cover ESBL, completed 5 day course, urine culture growing mixed timur. Sepsis resolved over course her of stay. For the right sided facial droop, stroke work up was attempt. Echo was obtained but results were pending at time of discharge. Attempted MRI but patient unable to tolerate, of the limited study they did not see any infarcts. Unable to obtain MRA head/ neck. By day of discharge facial droop had resolved. Initially her blood pressure meds were held to allow for permissive hypertension in case of CVA. After stroke was ruled out, home meds were resumed. Patient was initially requiring oxygen on admission, found to have right pleural effusion on CXR, she was able to be weaned to room air and was satting well. Found to have low magnesium, this was replaced and resolved. By day of discharge, patient was doing well, completed course of antibiotics and daughter was ready to take home. The patient will require home health. She is homebound. She is unsteady when walking and a fall risk. She has weakness and deconditioning due to hospitalization for exacerbation of disease process. She will need an RN to help monitor her blood pressure medications and blood pressure. She'll need physical therapy for strengthening due to weakness from recent hospitalization and deconditioning due to disease process. Her primary care doctor, Dr. Adrian follow her once discharged from the hospital Disposition: Home Discharge Condition: vitals stable, tolerating oral diet, symptom improvement Discharge Instructions: regular diet as tolerated, activity as tolerated, take medications as prescribed. Symptoms to report to physician include fever/chills , chest pain, shortness of breath, abdominal pain, erythema, drainage/discharge , slurred speech, extremity weakness, facial droop, urinary frequency/urgency/ burning, confusion or not improving as expected. Discharge Medications: Baclofen 5 mg PO DAILY Escitalopram [Lexapro] 5 mg PO DAILY Gabapentin [Neurontin] 100 mg PO BEDTIME Levothyroxine 25 mcg PO DAILY Lisinopril [Zestril] 20 mg PO BID Metoprolol Succinate [Toprol XL] 25 mg PO BID Potassium Chloride 10 meq PO DAILY hydrALAZINE HCl [Hydralazine HCl] 25 mg PO Q6H Aspirin 81 mg PO BEDTIME 30 Days #30 tab.chew Follow-up: PCP- Dr. Adrian 10/20/19 - Discharge Data Discharge Date: 10/14/19 Discharge Disposition: Home, Home Health Agency 06 Condition: Fair - Referral to Home Health Date of Face to Face Encounter: 10/14/19 Reason for Homebound Status: unsteady when walking, fall risk, weakness/ deconditioning from recent hospitalization Primary Care Physician: Aman Adrian MD Skilled Need: RN to monitor effectiveness of BP medication. PT for strengthening due to weakness/deconditioning from recent hospitalization, fall risk - Patient Summary/Data Consults: Consultations 10/11/19 11:12 Consult to Speech Language Pathology [[facility] [employer] Evaluation and Treatment] [CONS] Routine 10/12/19 10:15 Consult to Physical Therapy [PT Evaluation and Treatment] [CONS] Routine - Patient Instructions Diet: Heart Healthy Diet Activity: As Tolerated Showering/Bathing: May Shower Notify Provider of: Fever, Increased Pain, Swelling and Redness, Drainage, Nausea and/or Vomiting Other/Special Instructions: Additional symptoms include chest pain, shortness of breath, abomdinal pain, slurred speech, facial droop, extremity weakness, urinary urgency/frequceny/burning, or confusion. - Discharge Plan *PRESCRIPTION DRUG MONITORING PROGRAM REVIEWED*: No *COPY OF PRESCRIPTION DRUG MONITORING REPORT IN PATIENT CRISTIANA: No Prescriptions/Med Rec: Aspirin 81 mg PO BEDTIME 30 Days #30 tab.chew Home Medications: Home Meds Baclofen 5 mg PO DAILY 10/10/19 [History] Escitalopram [Lexapro] 5 mg PO DAILY 10/10/19 [History] Gabapentin [Neurontin] 100 mg PO BEDTIME 10/10/19 [History] Levothyroxine 25 mcg PO DAILY 10/10/19 [History] Lisinopril [Zestril] 20 mg PO BID 10/10/19 [History] Metoprolol Succinate [Toprol XL] 25 mg PO BID 10/10/19 [History] Potassium Chloride 10 meq PO DAILY 10/10/19 [History] hydrALAZINE HCl [Hydralazine HCl] 25 mg PO Q6H 10/10/19 [History] Aspirin 81 mg PO BEDTIME 30 Days #30 tab.chew 10/13/19 [Rx] Patient Handouts: Urinary Tract Infection, Adult, [id number], Aspirin, ASA oral tablets, Urosepsis Referrals: Aman Adrian MD [Primary Care Provider] - 10/20/19 2:15 pm - Discharge Summary/Plan Comment DC Time >30 min.: No - Patient Data Vitals - Most Recent: Last Vital Signs Temp 96.7 F 10/14/19 06:50 Pulse 57 L 10/14/19 06:50 Resp 18 10/14/19 05:39 BP 142/66 H 10/14/19 06:50 Pulse Ox 98 10/14/19 06:50 Weight - Most Recent: 63.503 kg I&O - Last 24 hours: Intake & Output 10/13/19 10/14/19 10/14/19 22:59 06:59 14:59 Intake Total 445 688 Output Total 735 Balance 445 -47 Lab Results - Last 24 hrs: Laboratory Results - last 24 hr 10/14/19 10/14/19 Range/Units 06:23 06:23 WBC 3.88 L (4.0-11.0) K/uL RBC 3.44 L (4.30-5.90) M/uL Hgb 9.8 L (12.0-16.0) g/dL Hct 29.6 L (36.0-46.0) % MCV 86.0 (80.0-98.0) fL MCH 28.5 (27.0-32.0) pg MCHC 33.1 (31.0-37.0) g/dL RDW Std Deviation 43.5 (28.0-62.0) fl RDW Coeff of Megan 14 (11.0-15.0) % Plt Count 134 L (150-400) K/uL MPV 10.10 (7.40-12.00) fL Neut % (Auto) 55.3 (48.0-80.0) % Lymph % (Auto) 29.4 (16.0-40.0) % Dickey % (Auto) 9.3 (0.0-15.0) % Eos % (Auto) 5.7 (0.0-7.0) % Baso % (Auto) 0.3 (0.0-1.5) % Neut # (Auto) 2.2 (1.4-5.7) K/uL Lymph # (Auto) 1.1 (0.6-2.4) K/uL Dickey # (Auto) 0.4 (0.0-0.8) K/uL Eos # (Auto) 0.2 (0.0-0.7) K/uL Baso # (Auto) 0.0 (0.0-0.1) K/uL Nucleated RBC % 0.0 /100WBC Nucleated RBCs # 0 K/uL Sodium 141 (136-145) mmol/L Potassium 3.3 L (3.5-5.1) mmol/L Chloride 104 (98-107) mmol/L Carbon Dioxide 27.1 (21.0-32.0) mmol/L BUN 15 (7.0-18.0) mg/dL Creatinine 0.9 (0.6-1.0) mg/dL Est Cr Clr Drug Dosing 43.32 mL/min Estimated GFR (MDRD) 59.1 ml/min Glucose 86 (74-106) mg/dL Calcium 8.3 L (8.5-10.1) mg/dL ROSITA Results - Last 24 hrs: Microbiology 10/13/19 21:00 C. difficile Antigen & Toxins A,B - Final Stool / Feces 10/10/19 20:09 Aerobic Blood Culture - Preliminary Blood - Venous - Lab Draw NO GROWTH AFTER 3 DAYS Anaerobic Blood Culture - Preliminary NO GROWTH AFTER 3 DAYS 10/10/19 19:45 Aerobic Blood Culture - Preliminary Blood - Venous NO GROWTH AFTER 3 DAYS Anaerobic Blood Culture - Preliminary NO GROWTH AFTER 3 DAYS Med Orders - Current: Current Medications Acetaminophen (Tylenol) 650 mg PO Q4H PRN PRN Reason: Pain Last Admin: 10/12/19 16:50 Dose: 650 mg Aspirin (Aspirin) 81 mg PO BEDTIME [facility] Last Admin: 10/13/19 21:23 Dose: 81 mg Escitalopram Oxalate (Lexapro) 5 mg PO DAILY [facility] Last Admin: 10/13/19 09:53 Dose: 5 mg Gabapentin (Neurontin) 100 mg PO BEDTIME [facility] Last Admin: 10/13/19 21:23 Dose: 100 mg Hydralazine HCl (Apresoline) 20 mg IVPUSH Q4H PRN PRN Reason: SBP>180 Last Admin: 10/12/19 17:03 Dose: 20 mg Hydralazine HCl (Apresoline) 25 mg PO Q6H [facility] Last Admin: 10/14/19 06:48 Dose: 25 mg Meropenem/Sodium Chloride 1 gm (/ Premix) 50 mls @ 100 mls/hr IV Q12H [facility] Last Admin: 10/14/19 04:03 Dose: 100 mls/hr Levothyroxine Sodium (Levothyroxine) 25 mcg PO ACBREAKFAST [facility] Last Admin: 10/14/19 06:48 Dose: 25 mcg Lisinopril (Prinivil) 20 mg PO BID [facility] Last Admin: 10/13/19 21:23 Dose: 20 mg Metoprolol Succinate (Toprol Xl) 25 mg PO BID [facility] Last Admin: 10/13/19 21:24 Dose: 25 mg Sodium Chloride (Saline Flush) 10 ml FLUSH ASDIRECTED PRN PRN Reason: Keep Vein Open Sodium Chloride (Saline Flush) 2.5 ml FLUSH ASDIRECTED PRN PRN Reason: Keep Vein Open Discontinued Medications Acetaminophen (Tylenol) 650 mg RECTAL NOW ONE Stop: 10/10/19 19:21 Last Admin: 10/10/19 19:29 Dose: 650 mg Atorvastatin Calcium (Lipitor) 40 mg PO BEDTIME [facility] Last Admin: 10/11/19 20:54 Dose: 40 mg Colestipol HCl (Colestipol Hcl) 2 gm PO ONETIME ONE Stop: 10/13/19 12:42 Last Admin: 10/13/19 14:21 Dose: 2 gm Colestipol HCl (Colestipol Hcl) Confirm Administered Dose 1 gm .ROUTE .STK-MED ONE Stop: 10/13/19 14:28 Last Admin: 10/13/19 14:53 Dose: Not Given Hydralazine HCl (Apresoline) 25 mg PO BEDTIME [facility] Hydralazine HCl (Apresoline) 25 mg PO BEDTIME [facility] Hydralazine HCl (Apresoline) 25 mg PO NOW STA Stop: 10/12/19 13:10 Last Admin: 10/12/19 13:50 Dose: 25 mg Sodium Chloride (Normal Saline) 1,000 mls @ 125 mls/hr IV ASDIRECTED [facility] Last Admin: 10/10/19 23:04 Dose: 125 mls/hr Ceftriaxone Sodium/Dextrose 1 (gm/ Premix) 50 mls @ 100 mls/hr IV ONETIME ONE Stop: 10/10/19 20:20 Last Admin: 10/10/19 20:16 Dose: 100 mls/hr Ceftriaxone Sodium/Dextrose 1 (gm/ Premix) 50 mls @ 100 mls/hr IV Q24H [facility] Meropenem 1 gm/ Sodium (Chloride) 100 mls @ 200 mls/hr IV Q8H [facility] Last Admin: 10/11/19 06:01 Dose: Not Given Lactated Ringer's (Ringers, Lactated) 500 mls @ 999 mls/hr IV ASDIRECTED [facility] Potassium Chloride 20 meq/ (Premix) 50 mls @ 25 mls/hr IV ONETIME ONE Stop: 10/11/19 04:00 Last Admin: 10/11/19 05:54 Dose: 25 mls/hr Vancomycin HCl 1 gm/ Sodium (Chloride) 250 mls @ 166 mls/hr IV Q24H [facility] Last Admin: 10/12/19 01:49 Dose: 166 mls/hr Meropenem/Sodium Chloride 1 gm (/ Premix) 50 mls @ 100 mls/hr IV Q8H [facility] Last Admin: 10/11/19 04:06 Dose: 100 mls/hr Vancomycin HCl (Vancomycin 1.5 Gm/300 Ml Bag) 300 mls @ 300 mls/hr IV NOW ONE Stop: 10/11/19 04:44 Last Admin: 10/11/19 04:44 Dose: 300 mls/hr Sodium Chloride (Normal Saline) 1,000 mls @ 50 mls/hr IV Q20H [facility] Last Admin: 10/12/19 06:33 Dose: 50 mls/hr Magnesium Sulfate 2 gm/ Premix 50 mls @ 50 mls/hr IV ONETIME ONE Stop: 10/12/19 11:50 Last Admin: 10/12/19 11:19 Dose: 50 mls/hr Labetalol HCl (Normodyne) Confirm Administered Dose 100 mg .ROUTE .STK-MED ONE Stop: 10/10/19 20:24 Last Admin: 10/10/19 20:30 Dose: Not Given Lisinopril (Prinivil) 20 mg PO BEDTIME [facility] Last Admin: 10/12/19 20:56 Dose: 20 mg Lisinopril (Prinivil) 20 mg PO ONETIME ONE Stop: 10/12/19 13:58 Last Admin: 10/12/19 14:18 Dose: 20 mg Lisinopril (Prinivil) 20 mg PO BEDTIME [facility] Metoprolol Succinate (Toprol Xl) 25 mg PO BEDTIME [facility]
[2019-10-14] MEDS: Lisinopril 10 MG Tab PO SCH (09:55)
[2019-10-14] MEDS: Escitalopram 10 MG Tab PO SCH (09:56)
[2019-10-14] MEDS: Metoprolol Succinate 25 MG Tab.ER PO SCH (09:57)
[2019-10-14 12:42] VITALS: PULSE 53
[2019-10-14] MEDS ORDERED: Meropenem Premix 1 GM in Premix Bag 1 BAG IV ONE (14:00)
[2019-10-14 14:18] VITALS: BP 135/66
--- NOTE | 2019-10-16 14:27 | ECHO ---
The echocardiogram report can be seen in this patient's EMR (Electronic Medical Record) in the REPORTS section. The echocardiogram report has also been scanned into PACS and can be seen there as well. YANNA
== END 2019-10-14 15:30 | disposition home health service (06) | DRG 871 ==
LOC: MW.ED 18:57 → MW.MS 20:42 → OBSVTOIN 20:42
PROVIDERS: ADMIT Student in an Organized Health Care Education/Training Program; ATTEND Student in an Organized Health Care Education/Training Program
DX: A41.9 Sepsis, unspecified organism (principal); H91.93 Unspecified hearing loss, bilateral; G93.41 Metabolic encephalopathy; N39.0 Urinary tract infection, site not specified; I70.1 Atherosclerosis of renal artery; J90 Pleural effusion, not elsewhere classified; G91.2 (Idiopathic) normal pressure hydrocephalus; E03.9 Hypothyroidism, unspecified; I69.354 Hemiplegia and hemiparesis following cerebral infarction affecting left non-dominant side; F03.90 Unspecified dementia, unspecified severity, without behavioral disturbance, psychotic disturbance, mood disturbance, and anxiety; E83.42 Hypomagnesemia; R29.810 Facial weakness; I11.0 Hypertensive heart disease with heart failure; I50.9 Heart failure, unspecified; E87.6 Hypokalemia; Z88.5 Allergy status to narcotic agent; Z88.0 Allergy status to penicillin; Z88.2 Allergy status to sulfonamides; Z88.8 Allergy status to other drugs, medicaments and biological substances; Z79.890 Hormone replacement therapy; Z79.899 Other long term (current) drug therapy
CPT/HCPCS: 36415; 70450; 71045; 80053; 81001; 83605; 84443; 85025; 87040 ×2; 87086; 87804 ×2; 93005; 96365; 99285; A9270; J0696; J7030; 70551; 70551-26; 80048; 80061; 82962; 83735; 84100; 87324; 92526-GN; 92610-GN; 93306; J0360; J2185; J3370; J3475; J3480; J7050